=== PATIENT | female | born 1970 | race Caucasian/White ===

== ENCOUNTER → 2017-10-09 10:46 | Outpatient (CLI) | payer BC, SELFPAY ==
[2017-10-09 11:08] LABS: Basophils # 0.1 K/mm3 (0-0.2); Basophils % 0.5 % (0.1-2.0); Eosinophils # 0.3 K/mm3 (0.0-0.4); Eosinophils % 2.4 % (0.1-12.0); Hematocrit 40.5 % (37.0-47.0); Hemoglobin 13.3 g/dL (12.2-16.2); Lymphocytes # 2.2 K/mm3 (0.7-4.5); Lymphocytes % 20.5 K/mm3 (10-50); Mean Corpuscular Hemoglobin 29.5 pg (27.0-31.2); Mean Corpuscular Volume 89.6 fl (81-99); Monocytes # 0.5 K/mm3 (0.1-1.0); Monocytes % 4.4 % (1.7-9.3); Neutrophils # 7.7 K/mm3 (1.8-7.8); Neutrophils % 72.2 % (37.0-80.0); Platelet Count 415 K/mm3 (142-424); Red Blood Count 4.51 M/mm3 (4.20-5.40); Red Cell Distribution Width 13.5 % (11.5-17.5); White Blood Count 10.7 K/mm3 (4.8-10.8)
[2017-10-09 12:38] LABS: Alanine Aminotransferase 17 U/L (12-78); Albumin Level 3.4 gm/dL (3.4-5.0); Albumin/Globulin Ratio 1.1 (1.1-1.8); Alkaline Phosphatase 114 U/L (46-116); Anion Gap 12.8 mEq/L (5-15); Aspartate Amino Transferase 16 U/L (15-37); Bilirubin,Total 0.3 mg/dL (0.2-1.0); Blood Urea Nitrogen 10 mg/dL (7-18); C-Reactive Protein 0.7 mg/L (0.0-0.9); Calcium 8.6 mg/dL (8.5-10.1); Carbon Dioxide 27 mmol/L (21.0-32.0); Chloride 108 mmol/L (98-107); Creatinine,Serum 0.79 mg/dL (0.55-1.02); Estimated Glomerular Filt Rate 77 ml/min (>60); Ferritin 81 ng/mL (8-388); GFR (African American) 94 ML/MIN (>60); Globulin 3.1 gm/dl (1.3-3.2); Glucose 87 mg/dL (74-106); Potassium 3.8 mmoL/L (3.5-5.1); Sodium 144 mmol/L (136-145); Total Protein,Serum 6.5 gm/dL (6.4-8.2)
[2017-10-09 14:29] LABS: Erythrocyte Sedimentation Rate 15 mm/hr (0-20)
[2017-10-10 07:18] LABS: Iron 48 ug/dL (27-159); Iron Saturation 15 % (15-55); UIBC 278 ug/dL (131-425)
[2017-10-10 09:14] LABS: Vitamin B12 435 pg/mL (232-1245); Vitamin D 25 Hydroxy 18.4 ng/mL (30.0-100.0)
== END ==
PROVIDERS: PCP Emergency Medicine; Visit Provider Internal Medicine Gastroenterology
DX: K51.90 Ulcerative colitis, unspecified, without complications (principal)
CPT/HCPCS: 36415; 80053; 82607; 82652; 82728; 83550; 85025; 85651; 86140

== ENCOUNTER 2017-10-16 10:05 | Outpatient (CLI) | payer BC, SELFPAY ==
[2017-10-16 10:34] VITALS: BMI 24.0
[2017-10-16 11:10] VITALS: BP 132/77; PULSE 90; RESP 18; TEMP 36.2; O2SAT 99
[2017-10-16 11:25] VITALS: BP 105/71; PULSE 71; RESP 18
[2017-10-16 11:40] VITALS: BP 114/77; PULSE 87; RESP 18
--- NOTE | 2017-10-16 11:56 | PC.NURSE ---
TOTAL VOLUME INCLUDES ENTYVIO AND NS.
[2017-10-16 12:10] VITALS: BP 124/77; PULSE 71; RESP 18
== END 2017-10-16 12:15 | disposition home or self-care (01) ==
LOC: INF 11:28
PROVIDERS: Family Provider Nurse Practitioner Family; PCP Emergency Medicine; Visit Provider Internal Medicine Gastroenterology
DX: K51.511 Left sided colitis with rectal bleeding (principal)
CPT/HCPCS: 96413; J3380

== ENCOUNTER 2017-10-17 11:40 | Emergency (ER) | payer BC, SELFPAY ==
[2017-10-17 11:40] VITALS: BP 131/59; PULSE 94; RESP 18; O2SAT 98; BMI 24.0
--- NOTE | 2017-10-17 11:52 | XR_ITS ---
XR chest portable Ordering Physician: Helene Coelho MD Patient Age: 47 years: Female HISTORY: ITS.REASON: chest pain TECHNIQUE: AP portable upright chest COMPARISON :Previous PA chest 08/21/2017 FINDINGS The lungs are well expanded and clear with nothing definitely acute. Mild hyperexpansion most evident towards upper lung jones and apices. Heart orestes and mediastinal structures intact. geographic information system surveyor leads in place. . No pneumothorax no pleural effusion. Chest wall unchanged IMPRESSION: Stable chest nothing definitely acute . Lungs clear
--- NOTE | 2017-10-17 11:54 | HMH.EDGENADL ---
ED Disposition Clinical Impression: Atypical chest pain Disposition: Home, Self-Care Condition on Discharge: Good Instructions: DI for Atypical Chest Pain Additional Instructions: See Cy next week, and give Dr. Glover a call about your visit today; clinically you do not appear to be having an allergic reaction, but talk with him about any potential side effects before next administration of Entyvio. Referrals: Cy Alexandra APRN [Primary Care Provider] - - Critical Care Critical Care Time: No Attestation: On , the high probability of a clinically significant, sudden or life threatening deterioration of the following system(s) required my full and direct attention, intervention and personal management. The time I documented below is in addition to time spent performing reported procedures but includes the following listed in this critical care notation. Medical Decision Making Vital Signs: 10/17/17 11:40 Pulse Rate [Right Radial] 94 H Respiratory Rate 18 Blood Pressure [Right Arm] 131/59 Blood Pressure Mean [Right Arm] 83 Blood Pressure Source [Right Arm] Automatic Cuff Blood Pressure Position [Right Arm] Sitting 02 Sat by Pulse Oximetry 98 Oxygen Delivery Method Room Air - Lab Data Lab Results 10/17/17 11:55: WBC 8.6, RBC 4.77, Hgb 13.9, Hct 43.3, MCV 90.8, MCH 29.2, MCHC 32.1, RDW 13.5, Plt Count 380, MPV 7.1 L, Neut % (Auto) 65.4, Lymph % (Auto) 28.4, [place] % (Auto) 4.0, Eos % (Auto) 1.8, Baso % (Auto) 0.5, Neut # (Auto) 5.6, Lymph # (Auto) 2.4, [place] # (Auto) 0.3, Eos # (Auto) 0.2, Baso # (Auto) 0.0 10/17/17 11:55: Sodium 143, Potassium 3.6, Chloride 107, Carbon Dioxide 27, Anion Gap 12.6, BUN 8, Creatinine 0.75, Estimated Creat Clear 97, Estimated GFR 82, Est GFR ( Amer) 99, Glucose 70 L, Calcium 8.8, Total Bilirubin 0.4, AST 20, ALT 16, Alkaline Phosphatase 100, Troponin I < 0.02, Total Protein 7.1, Albumin 3.5, Globulin 3.6 H, Albumin/Globulin Ratio 1.0 L, TSH 0.72 Result diagrams: 10/17/17 11:55 10/17/17 11:55 Orders (Tests/Meds): ORDERS Category Date Time Status Chest XR -- portable [XR chest portable] Stat Exams 10/17/17 11:52 Taken ECG Request by /Doroteo Stat Y 10/17/17 11:52 Ordered - Radiology Data #1 Image(s): Chest Image Reviewed: Yes I reviewed the patient's radiology image Preliminary Findings: Normal/NAD, No Infiltrates Seen, Normal Lung Inflation Conner, Normal Heart Size - ECG Data Tracing #1 I reviewed this ECG and interpreted as documented below: EEG shows normal sinus rhythm rate of 90 axis and intervals. No ectopy. No ST changes. ECG normal with no acute: arrhythmias, ischemia, conduction abnormalities, chamber hypertrophy - Derian Inquiry Pt receiving controlled substance: No - Reevaluation(s) Time: 12:43 General Adult HPI - General Chief complaint: Chest Pain Stated complaint: CHEST PAIN Mode of Arrival: Family Vehicle Limitations: No Limitations Description of Symptoms (Recalled from ER Triage Doc. by RN): PT STATES SHE IS HAVING MIDSTERNAL CHEST PAIN THAT FEELS LIKE PRESSURE AT 7 ON THE PAIN SCALE. PT STATES PAIN STARTED LAST NIGHT BUT HAS CONTINUED TO GET WORSE. PT DOES RECEIVE ENTYVIO INFUSIONS AND HAD ONE 10/16/17. - History of Present Illness HPI narrative: Patient states that she has ulcerative colitis. Received her first dose of Entivia per order from Dr. Glover yesterday. The lowers after receiving this medication, she went home. She subsequently very gradually developed some anxiety, feeling that her heart was racing (although she took her pulse and she said it felt okay), as well as some chest pressure. Essure was associated with some anxiety but not associated with any nausea vomiting shortness of breath fever diaphoresis calf pain syncope or any other symptoms. She denies fever. No cough. Pain is not positional in nature. Arrival to the ED EKG was obtained and read at 11:35 AM and shows normal sinus rhythm w
--- NOTE | 2017-10-17 11:57 | ED_ITS ---
ED Disposition Clinical Impression: Atypical chest pain Disposition: Home, Self-Care Condition on Discharge: Good Instructions: DI for Atypical Chest Pain Additional Instructions: See Cy next week, and give Dr. Glover a call about your visit today; clinically you do not appear to be having an allergic reaction, but talk with him about any potential side effects before next administration of Entyvio. Referrals: Cy Alexandra APRN [Primary Care Provider] - - Critical Care Critical Care Time: No Attestation: On , the high probability of a clinically significant, sudden or life threatening deterioration of the following system(s) required my full and direct attention, intervention and personal management. The time I documented below is in addition to time spent performing reported procedures but includes the following listed in this critical care notation. Medical Decision Making Vital Signs: 10/17/17 11:40 Pulse Rate [Right Radial] 94 H Respiratory Rate 18 Blood Pressure [Right Arm] 131/59 Blood Pressure Mean [Right Arm] 83 Blood Pressure Source [Right Arm] Automatic Cuff Blood Pressure Position [Right Arm] Sitting 02 Sat by Pulse Oximetry 98 Oxygen Delivery Method Room Air - Lab Data Lab Results 10/17/17 11:55: WBC 8.6, RBC 4.77, Hgb 13.9, Hct 43.3, MCV 90.8, MCH 29.2, MCHC 32.1, RDW 13.5, Plt Count 380, MPV 7.1 L, Neut % (Auto) 65.4, Lymph % (Auto) 28.4, [place] % (Auto) 4.0, Eos % (Auto) 1.8, Baso % (Auto) 0.5, Neut # (Auto) 5.6 , Lymph # (Auto) 2.4, [place] # (Auto) 0.3, Eos # (Auto) 0.2, Baso # (Auto) 0.0 10/17/17 11:55: Sodium 143, Potassium 3.6, Chloride 107, Carbon Dioxide 27, Anion Gap 12.6, BUN 8, Creatinine 0.75, Estimated Creat Clear 97, Estimated GFR 82, Est GFR ( Amer) 99, Glucose 70 L, Calcium 8.8, Total Bilirubin 0.4, AST 20, ALT 16, Alkaline Phosphatase 100, Troponin I < 0.02, Total Protein 7.1, Albumin 3.5, Globulin 3.6 H, Albumin/Globulin Ratio 1.0 L, TSH 0.72 Result diagrams: 10/17/17 11:55 10/17/17 11:55 Orders (Tests/Meds): ORDERS Category Date Time Status Chest XR -- portable [XR chest portable] Stat Exams 10/17/17 11:52 Taken ECG Request by /Doroteo Stat Y 10/17/17 11:52 Ordered - Radiology Data #1 Image(s): Chest Image Reviewed: Yes I reviewed the patient's radiology image Preliminary Findings: Normal/NAD, No Infiltrates Seen, Normal Lung Inflation Conner , Normal Heart Size - ECG Data Tracing #1 I reviewed this ECG and interpreted as documented below: EEG shows normal sinus rhythm rate of 90 axis and intervals. No ectopy. No ST changes. ECG normal with no acute: arrhythmias, ischemia, conduction abnormalities, chamber hypertrophy - Derian Inquiry Pt receiving controlled substance: No - Reevaluation(s) Time: 12:43 General Adult HPI - General Chief complaint: Chest Pain Stated complaint: CHEST PAIN Mode of Arrival: Family Vehicle Limitations: No Limitations Description of Symptoms (Recalled from ER Triage Doc. by RN): PT STATES SHE IS HAVING MIDSTERNAL CHEST PAIN THAT FEELS LIKE PRESSURE AT 7 ON THE PAIN SCALE. PT STATES PAIN STARTED LAST NIGHT BUT HAS CONTINUED TO GET WORSE. PT DOES RECEIVE ENTYVIO INFUSIONS AND HAD ONE 10/16/17. - History of Present Illness HPI narrative: Patient states that she has ulcerative colitis. Received her first dose of Entivia per order from Dr. Glover yesterday. The lowers after recei
[2017-10-17 12:08] LABS: Basophils % 0.5 % (0.1-2.0); Eosinophils # 0.2 K/mm3 (0.0-0.4); Eosinophils % 1.8 % (0.1-12.0); Hematocrit 43.3 % (37.0-47.0); Hemoglobin 13.9 g/dL (12.2-16.2); Lymphocytes # 2.4 K/mm3 (0.7-4.5); Lymphocytes % 28.4 K/mm3 (10-50); Mean Corpuscular HGB Conc 32.1 g/dL (31.8-35.4); Mean Corpuscular Hemoglobin 29.2 pg (27.0-31.2); Mean Corpuscular Volume 90.8 fl (81-99); Mean Platelet Volume 7.1 fl (7.4-10.4); Monocytes # 0.3 K/mm3 (0.1-1.0); Neutrophils # 5.6 K/mm3 (1.8-7.8); Neutrophils % 65.4 % (37.0-80.0); Platelet Count 380 K/mm3 (142-424); Red Blood Count 4.77 M/mm3 (4.20-5.40); Red Cell Distribution Width 13.5 % (11.5-17.5); White Blood Count 8.6 K/mm3 (4.8-10.8)
[2017-10-17 12:26] LABS: Troponin I < 0.02 ng/ml (0.00-0.06)
[2017-10-17 12:31] LABS: Alanine Aminotransferase 16 U/L (12-78); Albumin Level 3.5 gm/dL (3.4-5.0); Alkaline Phosphatase 100 U/L (46-116); Anion Gap 12.6 mEq/L (5-15); Aspartate Amino Transferase 20 U/L (15-37); Bilirubin,Total 0.4 mg/dL (0.2-1.0); Blood Urea Nitrogen 8 mg/dL (7-18); Calcium 8.8 mg/dL (8.5-10.1); Carbon Dioxide 27 mmol/L (21.0-32.0); Chloride 107 mmol/L (98-107); Creatinine Clearance Estimated 97 mL/min (0-300); Creatinine,Serum 0.75 mg/dL (0.55-1.02); Estimated Glomerular Filt Rate 82 ml/min (>60); GFR (African American) 99 ML/MIN (>60); Globulin 3.6 gm/dl (1.3-3.2); Glucose 70 mg/dL (74-106); Potassium 3.6 mmoL/L (3.5-5.1); Sodium 143 mmol/L (136-145); Thyroid Stimulating Hormone 0.72 uIU/ml (0.358-3.740); Total Protein,Serum 7.1 gm/dL (6.4-8.2)
== END 2017-10-17 13:30 | disposition home or self-care (01) ==
PROVIDERS: Emergency Provider Emergency Medicine; Family Provider Nurse Practitioner Family; PCP Nurse Practitioner Family
DX: R07.89 Other chest pain (principal); K51.90 Ulcerative colitis, unspecified, without complications; F17.210 Nicotine dependence, cigarettes, uncomplicated
CPT/HCPCS: 71045; 80053; 84443; 84484; 85025; 93005; 93041; 99284

== ENCOUNTER 2017-11-03 09:30 | Outpatient (CLI) | payer BC, SELFPAY ==
[2017-11-03 09:19] VITALS: BMI 24.0
[2017-11-03 09:50] LABS: Basophils # 0.1 K/mm3 (0-0.2); Basophils % 0.6 % (0.1-2.0); Eosinophils # 0.3 K/mm3 (0.0-0.4); Eosinophils % 3.8 % (0.1-12.0); Hematocrit 43.1 % (37.0-47.0); Lymphocytes # 2.5 K/mm3 (0.7-4.5); Mean Corpuscular HGB Conc 32.5 g/dL (31.8-35.4); Mean Corpuscular Hemoglobin 29.6 pg (27.0-31.2); Mean Corpuscular Volume 91.1 fl (81-99); Monocytes # 0.4 K/mm3 (0.1-1.0); Monocytes % 4.7 % (1.7-9.3); Neutrophils # 5.2 K/mm3 (1.8-7.8); Neutrophils % 60.9 % (37.0-80.0); Platelet Count 368 K/mm3 (142-424); Red Blood Count 4.73 M/mm3 (4.20-5.40); Red Cell Distribution Width 13.5 % (11.5-17.5); White Blood Count 8.5 K/mm3 (4.8-10.8)
[2017-11-03 09:55] VITALS: BP 105/74; PULSE 75; RESP 20; TEMP 36.4
[2017-11-03 10:20] VITALS: BP 107/74; PULSE 68; RESP 20; TEMP 36.4; O2SAT 98
[2017-11-03 10:22] LABS: Alanine Aminotransferase 18 U/L (12-78); Albumin Level 3.5 gm/dL (3.4-5.0); Aspartate Amino Transferase 11 U/L (15-37); Blood Urea Nitrogen 10 mg/dL (7-18); C-Reactive Protein 1.3 mg/L (0.0-0.9); Calcium 8.6 mg/dL (8.5-10.1); Carbon Dioxide 26 mmol/L (21.0-32.0); Chloride 109 mmol/L (98-107); Creatinine Clearance Estimated 81 mL/min (0-300); Estimated Glomerular Filt Rate 67 ml/min (>60); GFR (African American) 81 ML/MIN (>60); Glucose 88 mg/dL (74-106); Sodium 145 mmol/L (136-145)
[2017-11-03 10:33] LABS: Erythrocyte Sedimentation Rate 12 mm/hr (0-20)
[2017-11-03 10:40] VITALS: BP 110/74; PULSE 68; RESP 20; TEMP 36.4; O2SAT 95
[2017-11-03 10:59] LABS: Alkaline Phosphatase 103 U/L (46-116); Bilirubin,Total 0.4 mg/dL (0.2-1.0); Ferritin 79 ng/mL (8-388); Globulin 3.5 gm/dl (1.3-3.2)
[2017-11-04 08:27] LABS: Iron 93 ug/dL (27-159); Iron Saturation 28 % (15-55); UIBC 237 ug/dL (131-425)
[2017-11-05 12:33] LABS: Vitamin B12 469 pg/mL (232-1245); Vitamin D 25 Hydroxy 18.4 ng/mL (30.0-100.0)
== END 2017-11-03 11:10 | disposition home or self-care (01) ==
LOC: INF 13:05
PROVIDERS: Family Provider Nurse Practitioner Family; PCP Nurse Practitioner Family; Visit Provider Internal Medicine Gastroenterology
DX: K51.90 Ulcerative colitis, unspecified, without complications (principal)
CPT/HCPCS: 80053; 82607; 82652; 82728; 83550; 85025; 85651; 86140; 96365; J3380

== ENCOUNTER → 2017-11-13 07:30 | Outpatient (CLI) | payer BC, SELFPAY ==
--- NOTE | 2017-11-13 07:32 | CT_ITS ---
CT heart w calcium score INDICATION: Tobacco use, smoker ORDERING PHYSICIAN: Laureano Balderas MD PATIENT AGE: 47 years COMPARISON: None TECHNIQUE: Axial images are obtained without contrast. Sagittal and coronal reformatted images are reviewed as well. All CT scans at the facility use one or more dose reduction, viz: automated exposure control; ma/kV adjustment per patient size (including targeted exams where dose is matched to indication; i.e. head); or iterative reconstruction technique. FINDINGS: Coronary artery calcium score is 0 indicating a very low cardiovascular disease risk. Incidental note made of centrilobular emphysematous changes. IMPRESSION: 1. No identifiable atherosclerotic plaque indicating very low cardiovascular disease risk 2. Centrilobular emphysema
--- NOTE | 2017-11-13 07:33 | NM_ITS ---
History and Indications: Chest pressure Procedure: Patient exercised on Leonard protocol 7 minutes, resting heart rate was 76 bpm, resting blood pressure 140/69, with exercise maximum heart rate achieved was 1 63 bpm which is equal to 95% of the maximum predicted heart rate and a blood pressure was 156/85. Test was started due to shortness of breath, patient denied any complained of chest pain. Patient has good exercise capacity achieved 10.1mets of workload on treadmill, the blood pressure response to exercise was adequate. Electrocardiogram: Resting electrocardiogram showed sinus rhythm, rightward axis, with exercise occasional premature ventricular complex seen, there is less than 1.[address] segment depression noted from the baseline EKG. The EKG portion of the exercise Myoview is negative for ischemia. Cardiac stress and resting SPECT images: Cardiac stress and resting SPECT images were obtained using technetium 99 Myoview 31.6 mCi at stress and the 10.9 mCi at rest, gated SPECT further analysis of segmental wall motion and calculation of the ejection fraction also done. Cardiac stress and rest images show uniform myocardial activity without any segmental perfusion abnormality, computer derived ejection fraction is 64% with no obvious regional wall motion abnormality, right ventricle is normal size and contractility. Conclusion: 1. The EKG portion of the exercise Myoview is negative for ischemia, patient has good exercise capacity achieved 10.1mets of workload on treadmill, the blood pressure response to exercise was adequate, there was no exercise-induced chest discomfort. 2. No obvious scintigraphic evidence of reversible ischemia seen, computer derived ejection fraction is 64% with no obvious regional wall motion abnormality, right ventricle is normal size and contractility.
--- NOTE | 2017-11-13 07:41 | CA_ITS ---
PROCEDURE: 2-D M-mode and color Doppler study INDICATIONS FOR THE TEST: Chest pain X COPDX Heart Murmur Tobacco SmokingX Palpitations Fatigue Syncope Edema Hypertension Diabetes Mellitus Rheumatic Fever SOB [place] Obesity Hyperlipidemia Family History HD Additional History PATIENT INFORMATION HEIGHT: 66 WEIGHT:147 GENDER: Female B/P:140/69 2-D/M-MODE INTERPRETATION: 2-D MEASUREMENTS OBSERVED VALUES IN CMS Right Ventricular Dimension (RVDd) 1.7 Interventricular Septum (Thickness)(IVsd) .8 Left Ventricular Internal Dimensions(LVIDd) 4.3 Left Ventricular Posterior Wall (Thickness)(LVPWd) .8 Aortic Root 2.6 Aortic Cusp Separation 1.7 Left Atrial Dimensions (LAD) 3.0 2D 1. Left atrium is normal size, left ventricle is normal size, there is no concentric left ventricular hypertrophy, visually estimated ejection fraction 55% with no obvious regional wall motion abnormality. 2. The right atrium and right ventricle are normal size and contractility. 3. The aortic valve is minimally thickened and fibrosed. 4. The mitral and tricuspid valve are structurally normal. 5. The pulmonic valve is poorly visualized. 6. No significant pericardial effusion noted DOPPLER INTERROGATION: Doppler interrogation of the aortic, mitral and tricuspid valvular presence of mild mitral and tricuspid regurgitation, tricuspid and jet velocity insufficient for calculation of the right ventricular systolic pressure, grade 1 diastolic dysfunction seen without tissue Doppler evidence of raised left atrial pressure. CONCLUSION: 1. Normal left ventricular size, preserved left ventricular systolic function, visually estimated ejection fraction 55% with no obvious regional wall motion abnormality, grade 1 diastolic dysfunction seen without tissue Doppler evidence of raised left atrial pressure. 2. Mild mitral and tricuspid regurgitation 3. No significant pericardial effusion noted.
--- NOTE | 2017-11-13 12:02 | HMH.ITSHM ---
estrdiol, ventolin, fluticasone, vit d, omeprazole, asa
== END ==
PROVIDERS: Family Provider Nurse Practitioner Family; PCP Nurse Practitioner Family; Visit Provider Internal Medicine
DX: R07.89 Other chest pain (principal); R06.00 Dyspnea, unspecified; F17.200 Nicotine dependence, unspecified, uncomplicated
CPT/HCPCS: 75571; 78452; 93017; 93306; A9502

== ENCOUNTER 2017-12-03 09:22 | Outpatient (CLI) | payer BC, SELFPAY ==
[2017-12-03 09:33] VITALS: BMI 23.3
[2017-12-03 09:44] LABS: Basophils # 0.1 K/mm3 (0-0.2); Basophils % 0.5 % (0.1-2.0); Eosinophils # 0.3 K/mm3 (0.0-0.4); Eosinophils % 2.9 % (0.1-12.0); Hematocrit 43.6 % (37.0-47.0); Hemoglobin 13.9 g/dL (12.2-16.2); Lymphocytes # 2.2 K/mm3 (0.7-4.5); Mean Corpuscular HGB Conc 31.9 g/dL (31.8-35.4); Mean Corpuscular Hemoglobin 30.6 pg (27.0-31.2); Mean Corpuscular Volume 96.1 fl (81-99); Mean Platelet Volume 7.3 fl (7.4-10.4); Monocytes # 0.4 K/mm3 (0.1-1.0); Monocytes % 4.6 % (1.7-9.3); Neutrophils # 6.1 K/mm3 (1.8-7.8); Neutrophils % 67.9 % (37.0-80.0); Platelet Count 329 K/mm3 (142-424); Red Blood Count 4.53 M/mm3 (4.20-5.40); Red Cell Distribution Width 13.1 % (11.5-17.5); White Blood Count 8.9 K/mm3 (4.8-10.8)
[2017-12-03 09:52] LABS: Alanine Aminotransferase 17 U/L (12-78); Albumin Level 3.3 gm/dL (3.4-5.0); Alkaline Phosphatase 94 U/L (46-116); Anion Gap 11.5 mEq/L (5-15); Aspartate Amino Transferase 9 U/L (15-37); Bilirubin,Total 0.2 mg/dL (0.2-1.0); Blood Urea Nitrogen 11 mg/dL (7-18); C-Reactive Protein 0.3 mg/L (0.0-0.9); Calcium 8.5 mg/dL (8.5-10.1); Carbon Dioxide 27 mmol/L (21.0-32.0); Chloride 108 mmol/L (98-107); Creatinine Clearance Estimated 78 mL/min (0-300); Creatinine,Serum 0.91 mg/dL (0.55-1.02); Estimated Glomerular Filt Rate 66 ml/min (>60); GFR (African American) 80 ML/MIN (>60); Globulin 3.4 gm/dl (1.3-3.2); Glucose 85 mg/dL (74-106); Potassium 3.5 mmoL/L (3.5-5.1); Sodium 143 mmol/L (136-145); Total Protein,Serum 6.7 gm/dL (6.4-8.2)
[2017-12-03 10:00] VITALS: BP 108/69; PULSE 71; RESP 18; TEMP 36.6; O2SAT 98
[2017-12-03 10:15] VITALS: BP 119/71; PULSE 78; RESP 20; O2SAT 98
[2017-12-03 10:30] VITALS: BP 122/74; PULSE 76; RESP 20; O2SAT 98
[2017-12-03 10:45] VITALS: BP 125/76; PULSE 74; RESP 20; O2SAT 97
[2017-12-03 11:15] VITALS: BP 115/75; PULSE 76; RESP 20; TEMP 36.4; O2SAT 97
== END 2017-12-03 11:15 | disposition home or self-care (01) ==
LOC: INF 12-10 07:45
PROVIDERS: Family Provider Nurse Practitioner Family; PCP Nurse Practitioner Family; Visit Provider Internal Medicine Gastroenterology
DX: K51.511 Left sided colitis with rectal bleeding (principal); R19.7 Diarrhea, unspecified; K51.90 Ulcerative colitis, unspecified, without complications
CPT/HCPCS: 80053; 85025; 86140; 96413; J3380

== ENCOUNTER → 2017-12-04 11:31 | Outpatient (CLI) | payer BC, SELFPAY | PROVIDERS: PCP Emergency Medicine; Visit Provider Internal Medicine Cardiovascular Disease | DX: G47.33 Obstructive sleep apnea (adult) (pediatric) (principal); R06.83 Snoring; R06.00 Dyspnea, unspecified; R53.83 Other fatigue; F17.200 Nicotine dependence, unspecified, uncomplicated | CPT/HCPCS: 95806 ==

== ENCOUNTER → 2018-01-11 10:41 | Outpatient (POV) | payer BC, SELFPAY ==
[2018-01-11 12:02] LABS: Basophils % 0.3 % (0.1-2.0); Eosinophils # 0.1 K/mm3 (0.0-0.4); Eosinophils % 1.4 % (0.1-12.0); Hematocrit 43.1 % (37.0-47.0); Lymphocytes # 1.6 K/mm3 (0.7-4.5); Lymphocytes % 16.2 K/mm3 (10-50); Mean Corpuscular HGB Conc 32.4 g/dL (31.8-35.4); Mean Corpuscular Hemoglobin 30.5 pg (27.0-31.2); Mean Platelet Volume 6.9 fl (7.4-10.4); Monocytes # 0.4 K/mm3 (0.1-1.0); Monocytes % 3.8 % (1.7-9.3); Neutrophils # 7.7 K/mm3 (1.8-7.8); Neutrophils % 78.3 % (37.0-80.0); Platelet Count 336 K/mm3 (142-424); Red Blood Count 4.58 M/mm3 (4.20-5.40); White Blood Count 9.8 K/mm3 (4.8-10.8)
[2018-01-11 14:07] LABS: Alanine Aminotransferase 16 U/L (12-78); Albumin Level 3.4 gm/dL (3.4-5.0); Albumin/Globulin Ratio 1.1 (1.1-1.8); Alkaline Phosphatase 98 U/L (46-116); Anion Gap 13.7 mEq/L (5-15); Aspartate Amino Transferase 14 U/L (15-37); Bilirubin,Total 0.5 mg/dL (0.2-1.0); Blood Urea Nitrogen 9 mg/dL (7-18); C-Reactive Protein 0.2 mg/L (0.0-0.9); Calcium 8.8 mg/dL (8.5-10.1); Carbon Dioxide 26 mmol/L (21.0-32.0); Chloride 107 mmol/L (98-107); Creatinine,Serum 0.79 mg/dL (0.55-1.02); Estimated Glomerular Filt Rate 77 ml/min (>60); Ferritin 57 ng/mL (8-388); GFR (African American) 94 ML/MIN (>60); Globulin 3.1 gm/dl (1.3-3.2); Glucose 75 mg/dL (74-106); Potassium 3.7 mmoL/L (3.5-5.1); Sodium 143 mmol/L (136-145); Total Protein,Serum 6.5 gm/dL (6.4-8.2)
[2018-01-11 14:13] LABS: Erythrocyte Sedimentation Rate 8 mm/hr (0-20)
[2018-01-12 08:29] LABS: Iron 134 ug/dL (27-159); UIBC 185 ug/dL (131-425)
[2018-01-13 06:43] LABS: Iron Saturation 42 % (15-55); Vitamin B12 389 pg/mL (232-1245)
== END ==
PROVIDERS: Family Provider Nurse Practitioner Family; PCP Emergency Medicine; Visit Provider Nurse Practitioner Acute Care
DX: K51.90 Ulcerative colitis, unspecified, without complications (principal)
CPT/HCPCS: 36415; 80053; 82607; 82728; 83550; 85025; 85651; 86140

== ENCOUNTER 2018-01-28 10:00 | Outpatient (CLI) | payer BC, SELFPAY ==
[2018-01-28 10:45] VITALS: BP 98/63; PULSE 74; RESP 18; TEMP 36.8; O2SAT 96
[2018-01-28 11:00] VITALS: BP 101/60; PULSE 72; RESP 16
[2018-01-28 11:15] VITALS: BP 100/60; PULSE 74; RESP 18
[2018-01-28 11:30] VITALS: BP 99/63; PULSE 74; RESP 18
== END 2018-01-28 11:30 | disposition home or self-care (01) ==
LOC: INF 10:00
PROVIDERS: Family Provider Nurse Practitioner Family; PCP Emergency Medicine; Visit Provider Internal Medicine Gastroenterology
DX: K51.511 Left sided colitis with rectal bleeding (principal)
CPT/HCPCS: 96413; J3380

== ENCOUNTER → 2018-02-15 11:57 | Outpatient (REF) | payer BC, SELFPAY ==
[2018-02-15 13:43] LABS: Basophils % 0.4 % (0.1-2.0); Eosinophils # 0.3 K/mm3 (0.0-0.4); Eosinophils % 3.6 % (0.1-12.0); Hematocrit 38.9 % (37.0-47.0); Hemoglobin 12.9 g/dL (12.2-16.2); Lymphocytes # 2.1 K/mm3 (0.7-4.5); Lymphocytes % 24.5 K/mm3 (10-50); Mean Corpuscular Hemoglobin 29.9 pg (27.0-31.2); Mean Corpuscular Volume 90.6 fl (81-99); Mean Platelet Volume 7.5 fl (7.4-10.4); Monocytes # 0.3 K/mm3 (0.1-1.0); Monocytes % 3.8 % (1.7-9.3); Neutrophils # 5.7 K/mm3 (1.8-7.8); Neutrophils % 67.7 % (37.0-80.0); Platelet Count 344 K/mm3 (142-424); Red Blood Count 4.29 M/mm3 (4.20-5.40); Red Cell Distribution Width 12.8 % (11.5-17.5); White Blood Count 8.4 K/mm3 (4.8-10.8)
[2018-02-15 13:58] LABS: Hemoglobin A1C 5.3 % (0.0-7.0)
[2018-02-15 14:44] LABS: Alanine Aminotransferase 29 U/L (12-78); Albumin Level 3.4 gm/dL (3.4-5.0); Albumin/Globulin Ratio 1.1 (1.1-1.8); Alkaline Phosphatase 113 U/L (46-116); Anion Gap 14.2 mEq/L (5-15); Aspartate Amino Transferase 29 U/L (15-37); Bilirubin,Total 0.3 mg/dL (0.2-1.0); Blood Urea Nitrogen 9 mg/dL (7-18); Calcium 8.6 mg/dL (8.5-10.1); Carbon Dioxide 27 mmol/L (21.0-32.0); Chloride 108 mmol/L (98-107); Chol/HDL Ratio 5.8 (1-3.5); Cholesterol 187 mg/dL (140-200); Creatinine,Serum 0.63 mg/dL (0.55-1.02); Estimated Glomerular Filt Rate 100 ml/min (>60); Free T4 (Free Thyroxine) 1.04 ng/dl (0.76-1.46); GFR (African American) 121 ML/MIN (>60); Globulin 3.1 gm/dl (1.3-3.2); Glucose 76 mg/dL (74-106); HDL Cholesterol 32 mg/dL (29-89); LDL Cholesterol 105 mg/dL (0-130); Potassium 4.2 mmoL/L (3.5-5.1); Sodium 145 mmol/L (136-145); Thyroid Stimulating Hormone 0.72 uIU/ml (0.358-3.740); Total Protein,Serum 6.5 gm/dL (6.4-8.2); Triglycerides 251 mg/dL (30-200); VLDL Cholesterol 50 mg/dL (0-40)
[2018-02-15 14:45] LABS: Erythrocyte Sedimentation Rate 14 mm/hr (0-20)
[2018-02-16 14:30] LABS: Vitamin D 25 Hydroxy 22.7 ng/mL (30.0-100.0)
== END ==
LOC: LAB 11:57
PROVIDERS: Visit Provider Nurse Practitioner Family
DX: R53.83 Other fatigue (principal); G44.52 New daily persistent headache (NDPH)
CPT/HCPCS: 80053; 80061; 82652; 83036; 84439; 84443; 85025; 85651

== ENCOUNTER → 2018-02-25 08:38 | Outpatient (CLI) | payer BC, SELFPAY ==
--- NOTE | 2018-02-25 08:39 | MR_ITS ---
MR head/brain wo con HISTORY: Weren't headache ever, new onset headache ITS.REASON: headache ORDERING PHYSICIAN: Roseline Dodge PATIENT AGE: 48 years Comparison: None TECHNIQUE: Standard multiplanar multiecho sequences are performed without contrast. FINDINGS: No midline shift, mass effect, intracranial hemorrhage, or hydrocephalus. No evidence of acute infarction. The cerebellopontine angles, cerebellum, and brainstem are unremarkable. No large aneurysms. Small aneurysms may not be detected with this technique and better evaluated with MRA clinically warranted. There is normal de-white matter differentiation with no significant white matter abnormalities apparent. The mechanical gyri and temporal heart is are unremarkable. The pituitary, optic chiasm, corpus callosum are unremarkable. No cerebellar ectopia. No sinus air-fluid level. Small retention cysts are present in the sphenoid sinus. IMPRESSION: Negative MRI of the brain, no acute intracranial findings
== END ==
PROVIDERS: Family Provider Nurse Practitioner Family; PCP Emergency Medicine; Visit Provider Nurse Practitioner Family
DX: R51 Headache (principal)
CPT/HCPCS: 70551

== ENCOUNTER 2018-03-25 10:15 | Outpatient (CLI) | payer BC, SELFPAY ==
[2018-03-25 11:00] VITALS: BP 98/52; PULSE 75; RESP 18
[2018-03-25 11:15] VITALS: BP 125/74; PULSE 70; RESP 16
[2018-03-25 11:30] VITALS: BP 115/70; PULSE 68; RESP 16
== END 2018-03-25 11:45 | disposition home or self-care (01) ==
LOC: INF 10:23
PROVIDERS: Family Provider Nurse Practitioner Family; PCP Emergency Medicine; Visit Provider Internal Medicine Gastroenterology
DX: K51.511 Left sided colitis with rectal bleeding (principal)
CPT/HCPCS: 96413; J3380

== ENCOUNTER → 2018-03-29 10:12 | Outpatient (POV) | payer BC, SELFPAY ==
[2018-03-29 11:59] LABS: Basophils % 0.3 % (0.1-2.0); Eosinophils # 0.1 K/mm3 (0.0-0.4); Eosinophils % 1.5 % (0.1-12.0); Hematocrit 42.9 % (37.0-47.0); Hemoglobin 13.6 g/dL (12.2-16.2); Lymphocytes # 2.3 K/mm3 (0.7-4.5); Lymphocytes % 27.1 K/mm3 (10-50); Mean Corpuscular HGB Conc 31.7 g/dL (31.8-35.4); Mean Corpuscular Hemoglobin 29.2 pg (27.0-31.2); Mean Platelet Volume 7.4 fl (7.4-10.4); Monocytes # 0.4 K/mm3 (0.1-1.0); Monocytes % 4.8 % (1.7-9.3); Neutrophils # 5.6 K/mm3 (1.8-7.8); Neutrophils % 66.3 % (37.0-80.0); Platelet Count 349 K/mm3 (142-424); Red Blood Count 4.66 M/mm3 (4.20-5.40); White Blood Count 8.4 K/mm3 (4.8-10.8)
[2018-03-29 12:37] LABS: Alanine Aminotransferase 18 U/L (12-78); Albumin Level 3.4 gm/dL (3.4-5.0); Albumin/Globulin Ratio 1.1 (1.1-1.8); Alkaline Phosphatase 94 U/L (46-116); Anion Gap 11.9 mEq/L (5-15); Aspartate Amino Transferase 16 U/L (15-37); Bilirubin,Total 0.5 mg/dL (0.2-1.0); Blood Urea Nitrogen 12 mg/dL (7-18); C-Reactive Protein 0.2 mg/L (0.0-0.9); Calcium 8.7 mg/dL (8.5-10.1); Carbon Dioxide 27 mmol/L (21.0-32.0); Chloride 108 mmol/L (98-107); Creatinine,Serum 0.73 mg/dL (0.55-1.02); Estimated Glomerular Filt Rate 84 ml/min (>60); Ferritin 71 ng/mL (8-388); GFR (African American) 102 ML/MIN (>60); Globulin 3.1 gm/dl (1.3-3.2); Glucose 83 mg/dL (74-106); Potassium 3.9 mmoL/L (3.5-5.1); Sodium 143 mmol/L (136-145); Total Protein,Serum 6.5 gm/dL (6.4-8.2)
[2018-03-29 12:54] LABS: Erythrocyte Sedimentation Rate 10 mm/hr (0-20)
[2018-03-30 08:38] LABS: Iron 102 ug/dL (27-159); Iron Saturation 32 % (15-55); UIBC 214 ug/dL (131-425)
[2018-03-30 09:02] LABS: Vitamin B12 415 pg/mL (232-1245); Vitamin D 25 Hydroxy 44.3 ng/mL (30.0-100.0)
== END ==
PROVIDERS: Family Provider Nurse Practitioner Family; PCP Emergency Medicine; Visit Provider Nurse Practitioner Acute Care
DX: K51.90 Ulcerative colitis, unspecified, without complications (principal)
CPT/HCPCS: 36415; 80053; 82607; 82652; 82728; 83540; 83550; 85025; 85651; 86140

== ENCOUNTER 2018-05-24 10:08 | Outpatient (CLI) | payer BC, SELFPAY ==
[2018-05-24 10:45] VITALS: BP 132/70; PULSE 71; RESP 18; TEMP 36.5; O2SAT 100
[2018-05-24 11:00] VITALS: BP 129/72; PULSE 74; RESP 18; TEMP 36.6; O2SAT 99
[2018-05-24 11:15] VITALS: BP 125/74; PULSE 68; RESP 16
[2018-05-24 11:30] VITALS: BP 130/76; PULSE 72; RESP 18; TEMP 36.6; O2SAT 98
[2018-05-24 11:50] VITALS: BP 129/75; PULSE 74; RESP 18; TEMP 36.6; O2SAT 99
== END 2018-05-24 11:50 | disposition home or self-care (01) ==
LOC: INF 10:08
PROVIDERS: Family Provider Nurse Practitioner Family; PCP Emergency Medicine; Visit Provider Internal Medicine Gastroenterology
DX: K51.511 Left sided colitis with rectal bleeding (principal)
CPT/HCPCS: 96365; J3380

== ENCOUNTER 2018-07-30 11:15 | Outpatient (CLI) | payer BC, SELFPAY ==
[2018-07-30 11:34] VITALS: BP 134/70; PULSE 74; RESP 18; TEMP 36.4; O2SAT 98
[2018-07-30 11:50] VITALS: BP 119/71; PULSE 69; RESP 18; TEMP 36.6; O2SAT 97
[2018-07-30 12:05] VITALS: BP 120/60; PULSE 72; RESP 16; TEMP 36.7; O2SAT 98
[2018-07-30 12:15] VITALS: BP 123/70; PULSE 61; RESP 18; TEMP 36.6; O2SAT 98
[2018-07-30 12:30] VITALS: BP 121/76; PULSE 68; RESP 18; TEMP 36.6; O2SAT 97
== END 2018-07-30 12:30 | disposition home or self-care (01) ==
LOC: INF 11:15
PROVIDERS: Visit Provider Internal Medicine Gastroenterology
DX: K51.511 Left sided colitis with rectal bleeding (principal)
CPT/HCPCS: 96365; 96413; J3380

== ENCOUNTER → 2018-08-03 08:58 | Outpatient (CLI) | payer BC, SELFPAY ==
--- NOTE | 2018-08-03 08:59 | MM_ITS ---
MM Dig screening mamm BI w/CAD ORDERING PHYSICIAN : Brian Edge MD PATIENT AGE: 48 years GENDER: Female COMPARISON: June 2017 and January 2016. INDICATION: ITS.REASON: screening TECHNIQUE: Standard CC and MLO images were obtained. R2 CAD reviewed. FINDINGS: HISTORY of fibrocystic breast disease with multiple round masses bilaterally likely reflecting such . RIGHT BREAST:Multiple large round density. These have progressed since previous studies and all the most likely reflects cysts but recommend ultrasound to further verify 9 cystic nature. Beginning in the retroareolar region there are 2 round likely cyst structures here. One measuring up to 3.5 cm maximum diameter( labeled A ) & the other roughly 2.4 cm (labeled B) More laterally there are additional cyst. Largest measuring up to 3 cm diameter at deep upper-outer quadrant right breast. It is labeled C The larger cysts have on right breast have progressed since previous study. Other smaller cysts laterally have regressed slightly Previous January 2016 ultrasound right breast showed somewhat indeterminate area 9:00. This would benefit from follow-up ultrasound evaluation along with the other cyst . . LEFT BREAST: Round densities compatible with cystsat the left breast are shown less change since 2017. Less progression. The largest measuring 2.5 cm at the lateral left breast labeled X is shown slight progression.Other Smaller cyst at the lateral breast with little if any change. Overall believe cystic areas the left breast have improved since 2015 IMPRESSION: 1. Multiple rounded densities reflect presumed cysts bilaterally (as have been demonstrated on prior ultrasound and mammograms] Right breast. Progression of presumed cysts at right breast Left breast. Presumed Cysts less numerous and appear more stable. 2. would recommend bilateral breast ultrasound to further confirm benign cystic character of prominent, breast masses bilaterally. BI-RADS Category: 0 Need Additional Imaging Evaluation RECOMMENDED FOLLOW-UP: IMM - IMMEDIATE FOLLOW-UP RECOMMENDED Bilateral breast ultrasound (A letter has been sent to the patient regarding results of the study.)
== END ==
PROVIDERS: PCP Nurse Practitioner Family; Visit Provider Obstetrics & Gynecology
DX: Z12.31 Encounter for screening mammogram for malignant neoplasm of breast (principal)
CPT/HCPCS: 77067

== ENCOUNTER → 2018-08-12 10:41 | Outpatient (CLI) | payer BC, SELFPAY ==
--- NOTE | 2018-08-12 10:42 | US_ITS ---
US breast RT complete INDICATION: Abnormal mammogram ORDERING PHYSICIAN: Brian Edge MD PATIENT AGE: 48 years COMPARISON: 08/03/2018, 02/11/2016 TECHNIQUE: Right breast ultrasound complete with axilla FINDINGS: Numerous cysts are present including 4 mm cyst at 12:00 4.4 cm complex cyst at 12:00 on the nipple previously 2 cm. The cyst does contain some internal debris which is developed in the interval 15 mm complex cyst with mildly thickened septations at 9:00 previously at 12 mm 2.7 cm complex cyst at 10:00 containing some internal debris. This previously was 3.2 cm IMPRESSION: Multiple right breast cysts some of which have increased in size in the complex appearance containing some internal debris and some with septations BI-RADS Category: 2 Benign Finding(s) RECOMMENDED FOLLOW-UP: 6M - 6 MONTH FOLLOW-UP Any of these cysts could be aspirated with sonographic guidance if clinically desired for patient comfort/piece of mind (A letter has been sent to the patient regarding results of the study.)
--- NOTE | 2018-08-12 10:42 | US_ITS ---
US breast LT complete INDICATION: Evaluate left breast cysts/masses ORDERING PHYSICIAN: Brian Edge MD PATIENT AGE: 48 years COMPARISON: 02/11/2016, 08/03/2018 TECHNIQUE: Left breast ultrasound complete with axillae FINDINGS: Multiple breast cysts are noted. 9 mm cyst at 12:00 1 cm cyst at 12:00 near the nipple 9 mm cyst at 2:00 outer 2.8 x 1.7 cm cyst 2:00 mid Nodes in the axilla IMPRESSION: Benign findings. No evidence of malignancy BI-RADS Category: 2 Benign Finding(s) RECOMMENDED FOLLOW-UP: 1YR - 1 YEAR FOLLOW-UP (A letter has been sent to the patient regarding results of the study.)
== END ==
PROVIDERS: PCP Nurse Practitioner Family; Visit Provider Obstetrics & Gynecology
DX: R92.8 Other abnormal and inconclusive findings on diagnostic imaging of breast (principal)
CPT/HCPCS: 76641

== ENCOUNTER 2018-09-24 11:07 | Outpatient (CLI) | payer BC, SELFPAY ==
[2018-09-24 11:36] VITALS: BP 117/72; PULSE 97; RESP 18; TEMP 36.7; O2SAT 100
[2018-09-24 12:06] VITALS: BP 110/71; PULSE 94; RESP 18; O2SAT 99
[2018-09-24 12:25] VITALS: BP 97/65; PULSE 75; RESP 18; O2SAT 99
== END 2018-09-24 12:30 | disposition home or self-care (01) ==
LOC: INF 11:07
PROVIDERS: Visit Provider Nurse Practitioner Acute Care
DX: K51.90 Ulcerative colitis, unspecified, without complications (principal)
CPT/HCPCS: 96413; J3380

== ENCOUNTER → 2018-11-23 09:44 | Outpatient (CLI) | payer BC, SELFPAY ==
--- NOTE | 2018-11-23 09:47 | US_ITS ---
US breast cyst asp, US breast RT complete HISTORY: Complex right breast cyst with increasing tenderness. Patient desires aspiration, for ITS.REASON: cysts breast ORDERING PHYSICIAN: Brian Edge MD PATIENT AGE: 48 years COMPARISON: 08/12/2018 Prebiopsy ultrasound performed demonstrating a prominent lobulated cyst in the right breast deep to the nipple measuring 2.8 x 2 cm labeled as cyst A with an adjacent cyst medial at 1.9 x 1.8 cm which has some slight increase echoes labeled as cyst V. TECHNIQUE: Following obtaining informed consent, using aseptic technique and local anesthesia with buffered lidocaine, fine-needle aspiration was performed of the cyst a. Approximately 10 mL's of dark fluid was aspirated. Following this, the cyst labeled B was aspirated and 5 mL's of cloudy fluid was obtained. The cyst were nearly completely aspirated The patient tolerated the procedure well without evidence of immediate complications and left the ultrasound suite in stable condition. CYTOLOGY: Cyst A: Negative for malignancy, scant proteinaceous debris and foam cells consistent with benign cyst Cyst B: Negative for malignancy abundant proteinaceous debris with foam cells consistent with benign cyst IMPRESSION: Successful cyst aspiration of the right breast. Cytology shows benign findings.
== END ==
PROVIDERS: PCP Nurse Practitioner Family; Visit Provider Obstetrics & Gynecology
DX: N60.01 Solitary cyst of right breast (principal)
CPT/HCPCS: 10005; 76641; 76942

== ENCOUNTER 2018-12-08 10:32 | Outpatient (CLI) | payer BC, SELFPAY ==
[2018-12-08 10:56] VITALS: BP 122/70; PULSE 65; RESP 18; TEMP 36.6; O2SAT 98
[2018-12-08 11:26] VITALS: BP 126/71; PULSE 68; RESP 18; O2SAT 97
[2018-12-08 11:40] VITALS: BP 133/69; PULSE 67; RESP 18; O2SAT 98
== END 2018-12-08 11:40 | disposition home or self-care (01) ==
LOC: INF 10:32
PROVIDERS: Visit Provider Internal Medicine Gastroenterology
DX: K51.90 Ulcerative colitis, unspecified, without complications (principal)
CPT/HCPCS: 96413; J3380

== ENCOUNTER 2019-02-02 11:10 | Outpatient (CLI) | payer BC, SELFPAY ==
[2019-02-02 11:43] VITALS: BP 95/53; PULSE 74; RESP 18; TEMP 36.6; O2SAT 97
[2019-02-02 12:13] VITALS: BP 101/52; PULSE 76; RESP 18; O2SAT 96
[2019-02-02 12:30] VITALS: BP 106/59; PULSE 72; RESP 18; O2SAT 97
== END 2019-02-02 12:30 | disposition home or self-care (01) ==
LOC: INF 11:10
PROVIDERS: Visit Provider Nurse Practitioner Acute Care
DX: K51.90 Ulcerative colitis, unspecified, without complications (principal)
CPT/HCPCS: 96413; J3380

== ENCOUNTER → 2019-02-24 15:32 | Outpatient (CLI) | payer BC, SELFPAY ==
--- NOTE | 2019-02-24 15:35 | US_ITS ---
US breast RT complete COMPARISON: Ultrasound right breast 08/12/2018 HISTORY: 6 month follow-up of multiple breast cysts TECHNIQUE: Targeted ultrasound FINDINGS: Multiple hypoechoic lesions with internal debris are again noted similar to the previous study. The largest is at 10:00 position outer breast measuring 1.8 x 1.8 x 1.6 cm. There is a smaller satellite hypoechoic cystic lesion 10:00 position measuring 0.8 x 0.9 x 0.8 cm and showing homogeneous internal but decreased echogenicity. Is another hypoechoic cystic lesion with internal debris at the 9:00 position mid breast measuring 1.3 x 1.2 x 1.1 cm. Other smaller cystic-appearing lesions are seen. All the lesions are basely stable except the larger cystic lesion at the 12:00 position seen on the previous study in July 2018 and probably was aspirated. Multiple normal-appearing nodes are seen in the axilla. IMPRESSION: Patient with a stable multiple cystic appearing lesions most of which contain internal debris and with no suspicious features. No additional ultrasound follow-up is indicated unless one or more of the lesions become symptomatically tender or painful
== END ==
PROVIDERS: PCP Nurse Practitioner Family; Visit Provider Obstetrics & Gynecology
DX: R92.8 Other abnormal and inconclusive findings on diagnostic imaging of breast (principal)
CPT/HCPCS: 76641

== ENCOUNTER 2019-03-30 11:24 | Outpatient (CLI) | payer BC, SELFPAY ==
[2019-03-30 11:45] VITALS: BP 111/70; PULSE 78; RESP 18; TEMP 36.2; O2SAT 100
[2019-03-30 12:15] VITALS: BP 131/78; PULSE 68; RESP 18
== END 2019-03-30 12:25 | disposition home or self-care (01) ==
LOC: INF 11:24
PROVIDERS: Visit Provider Nurse Practitioner Acute Care
DX: K51.90 Ulcerative colitis, unspecified, without complications (principal)
CPT/HCPCS: 96413; J3380

== ENCOUNTER → 2019-08-01 14:28 | Outpatient (POV) | payer OTHER, SELFPAY ==
--- NOTE | 2019-08-01 14:33 | XR_ITS ---
PROCEDURE: XR CHEST 2V CLINICAL HISTORY: COUGH, ULCERATIVE COLITIS Cough, smoker COMPARISON: CXR CHEST(2 VIEWS-NOT PORTABLE) from 04/09/2017 CXR CHEST(2 VIEWS-NOT PORTABLE) from 08/21/2017 CXR1VP XR chest portable from 10/17/2017 FINDINGS: The cardiomediastinal silhouette and pulmonary vascularity are within normal limits. The lungs are clear without infiltrates, suspicious nodules, or pleural effusions. Calcified granuloma is present in the right lower lobe. No acute bony findings. IMPRESSION: No acute findings. Dictated by: Jv Mata MD 08/01/2019 15:09 Electronically signed by Jv Mata MD in [place] 08/01/2019 15:09
[2019-08-01 15:46] LABS: Basophils # 0.1 K/mm3 (0-0.2); Basophils % 0.5 % (0.1-2.0); Eosinophils # 0.2 K/mm3 (0.0-0.4); Eosinophils % 1.5 % (0.1-12.0); Hematocrit 46.1 % (37.0-47.0); Hemoglobin 14.4 g/dL (12.2-16.2); Lymphocytes # 2.9 K/mm3 (0.7-4.5); Lymphocytes % 26.7 % (10-50); Mean Corpuscular HGB Conc 31.3 g/dL (31.8-35.4); Mean Corpuscular Hemoglobin 30.9 pg (27.0-31.2); Mean Corpuscular Volume 98.6 fl (81-99); Mean Platelet Volume 7.4 fl (7.4-10.4); Monocytes # 0.4 K/mm3 (0.1-1.0); Neutrophils # 7.2 K/mm3 (1.8-7.8); Neutrophils % 67.3 % (37.0-80.0); Platelet Count 396 K/mm3 (142-424); Red Blood Count 4.68 M/mm3 (4.20-5.40); Red Cell Distribution Width 12.9 % (11.5-17.5); White Blood Count 10.7 K/mm3 (4.8-10.8)
[2019-08-01 17:07] LABS: Erythrocyte Sedimentation Rate 14 mm/hr (0-30)
[2019-08-01 17:34] LABS: Alanine Aminotransferase 18 U/L (12-78); Albumin Level 3.8 gm/dL (3.4-5.0); Albumin/Globulin Ratio 1.2 (1.1-1.8); Alkaline Phosphatase 122 U/L (46-116); Anion Gap 14.6 mEq/L (5-15); Aspartate Amino Transferase 13 U/L (15-37); Bilirubin,Total 0.3 mg/dL (0.2-1.0); Blood Urea Nitrogen 11 mg/dL (7-18); C-Reactive Protein 0.3 mg/dL (0.0-0.9); Calcium 9.1 mg/dL (8.5-10.1); Carbon Dioxide 26 mmol/L (21.0-32.0); Chloride 107 mmol/L (98-107); Creatinine,Serum 0.73 mg/dL (0.55-1.02); Estimated Glomerular Filt Rate 84 ml/min (>60); GFR (African American) 102 ML/MIN (>60); Globulin 3.2 gm/dl (1.3-3.2); Glucose 84 mg/dL (74-106); Potassium 4.6 mmoL/L (3.5-5.1); Sodium 143 mmol/L (136-145)
[2019-08-03 05:09] LABS: Hep A Ab, IgM Negative (Negative); Hepatitis B Core Antibody IgM Negative (Negative); Hepatitis B Surface Antigen Negative (Negative)
[2019-08-03 08:06] LABS: Hepatitis C Antibody <0.1 s/co ratio (0.0-0.9)
== END ==
PROVIDERS: PCP Nurse Practitioner Family; Visit Provider Nurse Practitioner Family
DX: K51.90 Ulcerative colitis, unspecified, without complications (principal)
CPT/HCPCS: 36415; 71046; 80053; 80074; 85025; 85651; 86140

== ENCOUNTER → 2019-09-01 09:52 | Outpatient (CLI) | payer OTHER, SELFPAY | PROVIDERS: PCP Nurse Practitioner Family; Visit Provider Nurse Practitioner Family | DX: R05 Cough (principal) | CPT/HCPCS: 94060; 94618; 94640; 94726; 94729 ==

== ENCOUNTER → 2019-11-07 13:42 | Outpatient (POV) | payer OTHER, SELFPAY | PROVIDERS: Visit Provider Nurse Practitioner Family | DX: Z00.00 Encounter for general adult medical examination without abnormal findings (principal) ==

== ENCOUNTER → 2020-01-02 13:36 | Outpatient (CLI) | payer BC, SELFPAY ==
--- NOTE | 2020-01-02 13:41 | XR_ITS ---
PROCEDURE: XR SACRUM COCCYX MIN 2V CLINICAL INDICATION: fall Posttraumatic pain COMPARISON: No exams were available for comparison FINDINGS: There is normal alignment. No fracture or dislocation. No lytic or blastic change. IMPRESSION: No acute findings. Dictated by: Jv Mata MD 01/02/2020 14:25 Electronically signed by Jv Mata MD in [facility] 01/02/2020 14:25
--- NOTE | 2020-01-02 13:41 | XR_ITS ---
PROCEDURE: XR LUMBAR SPINE 6V W BENDING CLINICAL INDICATION: fall Posttraumatic pain COMPARISON: No exams were available for comparison FINDINGS: There is normal alignment. No fracture or dislocation. No lytic or blastic change. IMPRESSION: No acute findings. Dictated by: Jv Mata MD 01/02/2020 14:24 Electronically signed by Jv Mata MD in [facility] 01/02/2020 14:24
== END ==
PROVIDERS: PCP Nurse Practitioner Family; Visit Provider Nurse Practitioner Family
DX: M54.5 Low back pain (principal)
CPT/HCPCS: 72114; 72220

== ENCOUNTER 2020-01-22 13:01 | Emergency (ER) | payer BC, SELFPAY ==
[2020-01-22 13:18] VITALS: BP 123/74; PULSE 88; RESP 16; TEMP 36.6; O2SAT 94; BMI 23.3
--- NOTE | 2020-01-22 13:23 | CT_ITS ---
PROCEDURE: CT ABDOMEN PELVIS WO CON CLINICAL INDICATION: r/o stone Right flank pain COMPARISON: Ten days this TECHNIQUE: Axial images obtained with sagittal and coronal reformats. All CT scans at the facility use one or more dose reduction, viz: automated exposure control, ma/kV adjustment per patient size (including targeted exams where dose is matched to indication, i.e. head), or iterative reconstruction technique. FINDINGS: LOWER THORAX: There are mild atelectatic changes in the lung bases. ABDOMEN & PELVIS: The liver, spleen, adrenal glands, pancreas, and gallbladder has an unremarkable appearance. There is a 2 mm stone in the upper pole of the right kidney. There is mild to moderate right hydronephrosis and hydroureter secondary to a 3 mm stone at the right ureterovesical junction. There is a 3 cm left renal cyst. No intestinal obstruction or free air. No evidence of appendicitis. There are scattered diverticula throughout the colon but no evidence of diverticulitis. There is thickening of the descending and sigmoid colon and rectal area which is nonspecific. There are post hysterectomy changes. No acute bony findings. IMPRESSION: 1. 3 mm right ureterovesical junction stone with mild to moderate right hydroureteronephrosis. 1 mm stone is present in the upper pole of the right kidney is well. 2. Colonic diverticulosis without diverticulitis. 3. Thickening of the descending colon and rectosigmoid region. This is nonspecific and could be due to nondistention or colitis. Dictated by: Jv Mata MD 01/22/2020 14:13 Electronically signed by Jv Mata MD in [facility] 01/22/2020 14:13
[2020-01-22 13:29] LABS: Microscopic, Urine URINE MICROSCOPIC (MICROSCOPIC)
[2020-01-22 13:33] LABS: Chloride 105 mmol/L (98-107); Potassium 3.8 mmoL/L (3.5-5.1); Sodium 137 mmol/L (136-145)
[2020-01-22 13:35] LABS: Alkaline Phosphatase 151 U/L (38-126); Anion Gap 11.8 mEq/L (5-15); Appearance,Urine CLEAR (Clear); Bilirubin,Total 0.5 mg/dl (0.2-1.3); Bilirubin,Urine Negative (Negative); Blood Urea Nitrogen 15 mg/dl (7-17); Blood, Urine TRACE-I (Negative); Carbon Dioxide 24 mmol/L (22.0-30.0); Color,Urine YELLOW (Yellow); Creatinine Clearance Estimated 86 mL/min (50-200); Estimated Glomerular Filt Rate 76 ml/min (>60); GFR (African American) 92 ML/MIN (>60); Glucose,Urine (UA) Negative (Negative); Ketones,Urine Negative (Negative); Leukocyte Esterase,Urine Negative (Negative); Nitrate,Urine Negative (Negative); PH,Urine 7.5 (5.0-8.5); Protein,Urine Negative (Negative); Urobilinogen,Urine 0.2 EU/dl (0.2)
[2020-01-22 13:36] LABS: Albumin Level 4.3 g/dl (3.5-5.0); Albumin/Globulin Ratio 1.4 (1.1-1.8); Aspartate Amino Transferase 26 U/L (14-36); Calcium 9.5 mg/dl (8.4-10.2); Glucose 98 mg/dl (74-100); Total Protein,Serum 7.3 g/dl (6.3-8.2)
[2020-01-22 13:37] LABS: Alanine Aminotransferase 21 U/L (12-78); Basophils # 0.1 K/mm3 (0-0.2); Basophils % 0.7 % (0.1-2.0); Eosinophils # 0.2 K/mm3 (0.0-0.4); Eosinophils % 1.4 % (0.1-12.0); Hematocrit 43.8 % (37.0-47.0); Hemoglobin 14.4 g/dL (12.2-16.2); Lymphocytes % 24.7 % (10-50); Mean Corpuscular HGB Conc 32.8 g/dL (31.8-35.4); Mean Corpuscular Hemoglobin 30.7 pg (27.0-31.2); Mean Corpuscular Volume 93.5 fl (81-99); Mean Platelet Volume 7.4 fl (7.4-10.4); Monocytes # 0.6 K/mm3 (0.1-1.0); Monocytes % 4.7 % (1.7-9.3); Neutrophils # 8.4 K/mm3 (1.8-7.8); Neutrophils % 68.5 % (37.0-80.0); Platelet Count 379 K/mm3 (142-424); Red Blood Count 4.69 M/mm3 (4.20-5.40); Red Cell Distribution Width 12.5 % (11.5-17.5); White Blood Count 12.3 K/mm3 (4.8-10.8)
[2020-01-22 13:46] LABS: Amorphous Sediment,Urine 1+ /lpf; Bacteria,Urine Trace /lpf; WBC,Urine Occasional #/hpf (0-3)
--- NOTE | 2020-01-22 14:27 | HMH.EDGENADL ---
ED Disposition Clinical Impression: Kidney stones Disposition: Home, Self-Care Condition on Discharge: Good Instructions: DI for Chronic Pain -- Adult, DI for Acute Pain -- Adult Additional Instructions: Please follow-up with primary care if pain still persist. Prescriptions: Oxycodone HCl/Acetaminophen [Percocet 10-325 mg Tablet] 1 tab PO Q6H PRN 3 Days #12 tab PRN Reason: Mild Pain Prescription Printed Referrals: Cy Alexandra APRN [Primary Care Provider] - - Critical Care Critical Care Time: No Attestation: On 01/22/20, the high probability of a clinically significant, sudden or life threatening deterioration of the following system(s) required my full and direct attention, intervention and personal management. The time I documented below is in addition to time spent performing reported procedures but includes the following listed in this critical care notation. Medical Decision Making - Medical Records Medical records reviewed: Yes: I reviewed the patient's medical records. - Derian Inquiry Pt receiving controlled substance: No Vital Signs: 01/22/20 13:18 01/22/20 14:31 01/22/20 15:10 Temperature 98 F Temperature Source Oral Pulse Rate [Left Radial] 88 86 93 H Respiratory Rate 16 Blood Pressure [Right Arm] 123/74 135/76 110/65 Blood Pressure Mean [Right Arm] 90 95 80 Blood Pressure Position [Right Arm] Sitting Sitting Sitting 02 Sat by Pulse Oximetry 94 L Oxygen Delivery Method Room Air 01/22/20 15:33 Temperature Temperature Source Pulse Rate [Left Radial] 99 H Respiratory Rate 16 Blood Pressure [Right Arm] 114/79 Blood Pressure Mean [Right Arm] 90 Blood Pressure Position [Right Arm] 02 Sat by Pulse Oximetry 94 L Oxygen Delivery Method Room Air - Lab Data Lab results reviewed: Yes: I reviewed the patient's lab results. Lab Results 01/22/20 13:15: Urine Color Yellow, Urine Appearance Clear, Urine pH 7.5, Ur Specific [place] 1.020, Urine Protein Negative, Urine Glucose (UA) Negative, Urine Ketones Negative, Urine Blood Trace-i, Urine Nitrate Negative, Urine Bilirubin Negative, Urine Urobilinogen 0.2, Ur Leukocyte Esterase Negative, Urine RBC 3-5, Urine WBC Occasional, Ur Squamous Epith Cells 5-10, Amorphous Sediment 1+, Urine Bacteria Trace 01/22/20 13:15: WBC 12.3 H, RBC 4.69, Hgb 14.4, Hct 43.8, MCV 93.5, MCH 30.7, MCHC 32.8, RDW 12.5, Plt Count 379, MPV 7.4, Neut % (Auto) 68.5, Lymph % (Auto) 24.7, [place] % (Auto) 4.7, Eos % (Auto) 1.4, Baso % (Auto) 0.7, Neut # (Auto) 8.4 H, Lymph # (Auto) 3.0, [place] # (Auto) 0.6, Eos # (Auto) 0.2, Baso # (Auto) 0.1 01/22/20 13:15: Sodium 137, Potassium 3.8, Chloride 105, Carbon Dioxide 24, Anion Gap 11.8, BUN 15, Creatinine 0.80, Estimated Creat Clear 86, Estimated GFR 76, Est GFR ( Amer) 92, Glucose 98, Calcium 9.5, Total Bilirubin 0.5, AST 26, ALT 21, Alkaline Phosphatase 151 H, Total Protein 7.3, Albumin 4.3, Globulin 3.0, Albumin/Globulin Ratio 1.4 Result diagrams: 01/22/20 13:15 01/22/20 13:15 Orders (Tests/Meds): ED MEDICATIONS Generic Name Dose Route Start Last Admin Trade Name Freq PRN Reason Stop Dose Admin Sodium Chloride 1,000 mls @ 999 mls/hr 01/22/20 13:30 01/22/20 13:10 Sod Chlor 0.9% 1000ml Bag IV 01/22/20 14:30 999 mls/hr .Q1H1M LOREN Administration Sodium Chloride 1,000 mls @ 999 mls/hr 01/22/20 15:00 01/22/20 14:50 Sod Chlor 0.9% 1000ml Bag IV 01/22/20 16:00 999 mls/hr .Q1H1M LOREN Administration Sodium Chloride 1,000 mls @ 999 mls/hr 01/22/20 15:15 01/22/20 15:12 Sod Chlor 0.9% 1000ml Bag IV 01/22/20 16:15 999 mls/hr .Q1H1M LOREN Administration Discontinued Medications Generic Name Dose Route Start Last Admin Trade Name Freq PRN Reason Stop Dose Admin Fentanyl Citrate 70 mcg 01/22/20 14:49 01/22/20 14:50 Fentanyl 250mcg/5ml Vial IV 01/22/20 14:50 70 mcg ONCE ONE Administration Hydromorphone HCl 1 mg 01/22/20 13:33 01/22/20 13:30 Dilaudid 2mg/Ml Syri
[2020-01-22 14:31] VITALS: BP 135/76; PULSE 86
[2020-01-22 15:10] VITALS: BP 110/65; PULSE 93
[2020-01-22 15:33] VITALS: BP 114/79; PULSE 99; RESP 16; O2SAT 94
[2020-01-22 16:40] VITALS: BP 123/74; PULSE 79; RESP 16; TEMP 36.6; O2SAT 98
== END 2020-01-22 16:43 | disposition home or self-care (01) ==
PROVIDERS: Emergency Provider Family Medicine; PCP Nurse Practitioner Family
DX: N20.0 Calculus of kidney (principal); F41.9 Anxiety disorder, unspecified; K21.9 Gastro-esophageal reflux disease without esophagitis; F17.210 Nicotine dependence, cigarettes, uncomplicated
CPT/HCPCS: 74176; 80053; 81001; 85025; 96365; 96366; 96367; 96374; 96375; 96376; 99284; J2405

== ENCOUNTER → 2020-01-23 13:24 | Outpatient (CLI) | payer BC, SELFPAY ==
[2020-02-03 18:38] LABS: Composition SEE BELOW:; Specimen Type NOT PROVIDED
== END ==
PROVIDERS: Visit Provider Urology
DX: N20.0 Calculus of kidney (principal)
CPT/HCPCS: 82370

== ENCOUNTER 2020-02-04 21:37 | Emergency (ER) | payer BC, SELFPAY ==
--- NOTE | 2020-02-04 21:45 | HMH.EDGENADL ---
ED Disposition Clinical Impression: Headache Qualifiers: Headache type: unspecified Headache chronicity pattern: acute headache Intractability: not intractable Qualified Code(s): R51 - Headache Disposition: Home, Self-Care Condition on Discharge: Good Instructions: DI for Headache Additional Instructions: Additional instructions for HEADACHE: See your physician as soon as possible for further evaluation. Return immediately if worsening headache, vomiting, problems with vision or speech, fever, numbness or weakness of the extremities, neck pain or stiffness. Referrals: Cy Alexandra APRN [Primary Care Provider] - - Critical Care Critical Care Time: No Attestation: On 02/04/20, the high probability of a clinically significant, sudden or life threatening deterioration of the following system(s) required my full and direct attention, intervention and personal management. The time I documented below is in addition to time spent performing reported procedures but includes the following listed in this critical care notation. Medical Decision Making - Medical Records Medical records reviewed: Yes: I reviewed the patient's medical records. - Derian Inquiry Pt receiving controlled substance: No Vital Signs: 02/04/20 21:46 02/04/20 22:48 02/05/20 00:14 Temperature 98.3 F 98.3 F Temperature Source Oral Oral Pulse Rate 78 Pulse Rate [Right Brachial] 80 65 Respiratory Rate 16 18 16 Blood Pressure 133/82 Blood Pressure [Right Arm] 160/97 H 126/73 Blood Pressure Mean [Right Arm] 118 90 Blood Pressure Source Automatic Cuff Blood Pressure Source [Right Arm] Automatic Cuff Automatic Cuff Blood Pressure Position Sitting Blood Pressure Position [Right Arm] Sitting Sitting 02 Sat by Pulse Oximetry 97 98 Oxygen Delivery Method Room Air Room Air Room Air - Lab Data Lab results reviewed: Yes: I reviewed the patient's lab results. Lab Results 02/04/20 21:45: WBC 12.5 H, RBC 4.74, Hgb 14.0, Hct 43.8, MCV 92.3, MCH 29.6, MCHC 32.0, RDW 13.2, Plt Count 445 H, MPV 7.4, Neut % (Auto) 69.1, Lymph % (Auto) 23.3, [place] % (Auto) 4.7, Eos % (Auto) 2.2, Baso % (Auto) 0.6, Neut # (Auto) 8.6 H, Lymph # (Auto) 2.9, [place] # (Auto) 0.6, Eos # (Auto) 0.3, Baso # (Auto) 0.1 02/04/20 21:45: Sodium 139, Potassium 4.2, Chloride 105, Carbon Dioxide 28, Anion Gap 10.2, BUN 13, Creatinine 0.90, Estimated Creat Clear 79, Estimated GFR 66, Est GFR ( Amer) 80, Glucose 111 H, Calcium 9.9, Total Bilirubin 0.4, AST 24, ALT 15, Alkaline Phosphatase 145 H, Total Protein 8.1, Albumin 4.9, Globulin 3.2, Albumin/Globulin Ratio 1.5 Result diagrams: 02/04/20 21:45 02/04/20 21:45 Orders (Tests/Meds): ED MEDICATIONS Discontinued Medications Generic Name Dose Route Start Last Admin Trade Name Freq PRN Reason Stop Dose Admin Diphenhydramine HCl 25 mg 02/04/20 21:53 02/04/20 22:05 Benadryl 50mg/1ml Vial IV 02/04/20 21:54 25 mg ONCE ONE Administration Famotidine 20 mg 02/04/20 21:53 02/04/20 22:05 Pepcid 20mg/2ml Vial IV 02/04/20 21:54 20 mg ONCE ONE Administration Sodium Chloride 1,000 mls @ 999 mls/hr 02/04/20 22:00 02/04/20 22:05 Sod Chlor 0.9% 1000ml Bag IV 02/04/20 23:00 999 mls/hr .Q1H1M LOREN Administration Ketorolac Tromethamine 30 mg 02/04/20 22:16 02/04/20 22:16 Toradol 30mg/Ml Vial IV 02/04/20 22:17 30 mg ONCE ONE Administration Metoclopramide HCl 10 mg 02/04/20 21:53 02/04/20 22:05 Reglan 10mg/2ml Vial IVP 02/04/20 21:54 10 mg ONCE ONE Administration Sodium Chloride 8 ml 02/04/20 21:53 Sodium Chloride 0.9% 10ml Vial IV 03/05/20 21:52 NEEDED PRN dilute pepcid ORDERS Category Date Time Status CT head/brain wo con Stat Cat Scan 02/04/20 22:03 Taken - CT Data CT Scan: Head Time Received: 22:47 ([facility] fax) ED CT Reviewed: Yes: I have viewed the radiologist's interpretation Findings Narrative: No acute intracranial abnormality -
[2020-02-04 21:46] VITALS: BP 160/97; PULSE 80; RESP 16; TEMP 36.8; O2SAT 97; BMI 24.2
--- NOTE | 2020-02-04 22:03 | CT_ITS ---
PROCEDURE: CT HEAD/BRAIN WO CON CLINICAL INDICATION: headache right-sided COMPARISON: MRI scan of the brain without contrast 02/25/2018 TECHNIQUE: Axial images obtained. All CT scans at the facility use one or more dose reduction, viz: automated exposure control, ma/kV adjustment per patient size (including targeted exams where dose is matched to indication, i.e. head), or iterative reconstruction technique. FINDINGS: No midline shift, mass effect, intracranial hemorrhage, hydrocephalus, or extra-axial fluid collection is evident. The basilar cisterns are mildly prominent. The sylvian fissures and cortical sulci, particularly frontal lobes are prominent. The calvarium has an unremarkable appearance. No mastoid effusion. No sinus air-fluid level. IMPRESSION: Findings of mild age-appropriate cortical atrophy, no acute intracranial pathology noted Dictated by: Dr. Yobany Corbin MD 02/05/2020 08:[address] Yobany Corbin MD in [place] 02/05/2020 08:29
[2020-02-04 22:04] LABS: Basophils # 0.1 K/mm3 (0-0.2); Basophils % 0.6 % (0.1-2.0); Eosinophils # 0.3 K/mm3 (0.0-0.4); Eosinophils % 2.2 % (0.1-12.0); Hematocrit 43.8 % (37.0-47.0); Lymphocytes # 2.9 K/mm3 (0.7-4.5); Lymphocytes % 23.3 % (10-50); Mean Corpuscular Hemoglobin 29.6 pg (27.0-31.2); Mean Corpuscular Volume 92.3 fl (81-99); Mean Platelet Volume 7.4 fl (7.4-10.4); Monocytes # 0.6 K/mm3 (0.1-1.0); Monocytes % 4.7 % (1.7-9.3); Neutrophils # 8.6 K/mm3 (1.8-7.8); Neutrophils % 69.1 % (37.0-80.0); Platelet Count 445 K/mm3 (142-424); Red Blood Count 4.74 M/mm3 (4.20-5.40); Red Cell Distribution Width 13.2 % (11.5-17.5); White Blood Count 12.5 K/mm3 (4.8-10.8)
[2020-02-04 22:07] LABS: Alanine Aminotransferase 15 U/L (12-78); Albumin Level 4.9 g/dl (3.5-5.0); Albumin/Globulin Ratio 1.5 (1.1-1.8); Alkaline Phosphatase 145 U/L (38-126); Anion Gap 10.2 mEq/L (5-15); Aspartate Amino Transferase 24 U/L (14-36); Bilirubin,Total 0.4 mg/dl (0.2-1.3); Blood Urea Nitrogen 13 mg/dl (7-17); Calcium 9.9 mg/dl (8.4-10.2); Carbon Dioxide 28 mmol/L (22.0-30.0); Chloride 105 mmol/L (98-107); Creatinine Clearance Estimated 79 mL/min (50-200); Estimated Glomerular Filt Rate 66 ml/min (>60); GFR (African American) 80 ML/MIN (>60); Globulin 3.2 g/dL (1.3-3.2); Glucose 111 mg/dl (74-100); Potassium 4.2 mmoL/L (3.5-5.1); Sodium 139 mmol/L (136-145); Total Protein,Serum 8.1 g/dl (6.3-8.2)
[2020-02-04 22:48] VITALS: BP 126/73; PULSE 65; RESP 18; O2SAT 98
[2020-02-05 00:14] VITALS: BP 133/82; PULSE 78; RESP 16; TEMP 36.8; O2SAT 98
== END 2020-02-05 00:17 | disposition home or self-care (01) ==
PROVIDERS: Emergency Provider Emergency Medicine; PCP Nurse Practitioner Family
DX: R51 Headache (principal); F41.9 Anxiety disorder, unspecified; K21.9 Gastro-esophageal reflux disease without esophagitis; F17.210 Nicotine dependence, cigarettes, uncomplicated; Z87.442 Personal history of urinary calculi; Z90.09 Acquired absence of other part of head and neck; Z90.79 Acquired absence of other genital organ(s)
CPT/HCPCS: 70450; 80053; 85025; 96365; 96375; 99283

== ENCOUNTER → 2020-02-14 12:18 | Outpatient (CLI) | payer BC, SELFPAY ==
--- NOTE | 2020-02-14 12:31 | XR_ITS ---
PROCEDURE: XR CHEST 2V CLINICAL HISTORY: Dyspnea COMPARISON: CXR1VP XR chest portable from 10/17/2017 XR CHEST 2V from 08/01/2019 XR CHEST PORTABLE from 12/20/2019 FINDINGS: The cardiomediastinal silhouette and pulmonary vascularity are within normal limits. The lungs are clear without infiltrates, suspicious nodules, or pleural effusions. No acute bony abnormalities. IMPRESSION: No acute findings. Dictated by: Dr. Yobany Corbin MD 02/14/2020 12:[address] Yobany Corbin MD in [facility] 02/14/2020 12:46
[2020-02-14 13:01] LABS: Basophils # 0.1 K/mm3 (0-0.2); Basophils % 0.5 % (0.1-2.0); Eosinophils # 0.2 K/mm3 (0.0-0.4); Eosinophils % 1.3 % (0.1-12.0); Hematocrit 43.7 % (37.0-47.0); Hemoglobin 13.7 g/dL (12.2-16.2); Lymphocytes # 3.2 K/mm3 (0.7-4.5); Lymphocytes % 22.9 % (10-50); Mean Corpuscular HGB Conc 31.4 g/dL (31.8-35.4); Mean Corpuscular Hemoglobin 29.8 pg (27.0-31.2); Mean Corpuscular Volume 95.1 fl (81-99); Mean Platelet Volume 7.3 fl (7.4-10.4); Monocytes # 0.6 K/mm3 (0.1-1.0); Monocytes % 4.1 % (1.7-9.3); Neutrophils # 9.9 K/mm3 (1.8-7.8); Neutrophils % 71.2 % (37.0-80.0); Platelet Count 436 K/mm3 (142-424); White Blood Count 13.8 K/mm3 (4.8-10.8)
[2020-02-14 14:12] LABS: Alanine Aminotransferase 14 U/L (12-78); Albumin/Globulin Ratio 1.5 (1.1-1.8); Alkaline Phosphatase 121 U/L (38-126); Anion Gap 9.4 mEq/L (5-15); Aspartate Amino Transferase 22 U/L (14-36); Bilirubin,Total 0.2 mg/dl (0.2-1.3); Blood Urea Nitrogen 12 mg/dl (7-17); Calcium 9.5 mg/dl (8.4-10.2); Carbon Dioxide 27 mmol/L (22.0-30.0); Chloride 104 mmol/L (98-107); Estimated Glomerular Filt Rate 66 ml/min (>60); GFR (African American) 80 ML/MIN (>60); Globulin 2.7 g/dL (1.3-3.2); Glucose 92 mg/dl (74-100); Potassium 4.4 mmoL/L (3.5-5.1); Sodium 136 mmol/L (136-145); Total Protein,Serum 6.7 g/dl (6.3-8.2)
== END ==
PROVIDERS: PCP Physician Assistant; Visit Provider Physician Assistant
DX: R06.00 Dyspnea, unspecified (principal)
CPT/HCPCS: 36415; 71046; 80053; 85025

== ENCOUNTER → 2020-02-27 08:42 | Outpatient (CLI) | payer BC, SELFPAY ==
--- NOTE | 2020-02-27 08:43 | MM_ITS ---
PROCEDURE: MM DIG SCREENING MAMM BI W/CAD Digital Breast Tomosynthesis Included CLINICAL INDICATION: screening There is no personal or family history of breast cancer. There has been previous cyst aspirations on both breasts. COMPARISON: [facility] DIG MAMM-DX JOHNNY from 02/11/2016 [facility] DIG MAMM-SCREEN JOHNNY W/CAD from 07/01/2017 [facility] MM Dig screening mamm BI w/CAD from 08/03/2018 TECHNIQUE: Standard CC and MLO images and 3D Tomosynthesis was obtained. R2 CAD reviewed. FINDINGS: Moderate diffuse fibro glandular densities are seen in both breasts. Multiple cystic structures are seen in both breast best seen on the joe images. The cystic-appearing structures have markedly decreased in size when compared to previous studies. There are a few of benign-appearing calcifications in each breast. There are 2 mole markers left breast. There is no suspicious lesion in either breast and no suspicious microcalcifications. There is several small normal appearing nodes in each axilla. IMPRESSION: Fibrocystic type breast parenchyma with no suspicious lesions seen BI-RAD Category: 2 Benign Finding(s) FOLLOW-UP: 1YR 1 Year Follow-up (A letter has been sent to the patient regarding results of the study.) Dictated by: Dr. Yobany Corbin MD 02/29/2020 19:[address] Yobany Corbin MD in [place] 02/29/2020 19:25
== END ==
PROVIDERS: PCP Nurse Practitioner Family; Visit Provider Nurse Practitioner Family
DX: Z12.31 Encounter for screening mammogram for malignant neoplasm of breast (principal)
CPT/HCPCS: 77063; 77067

== ENCOUNTER → 2020-02-28 10:44 | Outpatient (CLI) | payer BC, SELFPAY ==
[2020-02-28 12:05] VITALS: PULSE 90; PULSE 96
== END ==
PROVIDERS: PCP Nurse Practitioner Family; Visit Provider Physician Assistant
DX: R06.00 Dyspnea, unspecified (principal)
CPT/HCPCS: 94060; 94618; 94640; 94726; 94729

== ENCOUNTER → 2020-03-02 10:38 | Outpatient (CLI) | payer BC, SELFPAY ==
[2020-03-02 14:12] LABS: Coronavirus 19 IgG Antibody Negative (Negative); Coronavirus 19 IgM Antibody Negative (Negative)
== END ==
PROVIDERS: Visit Provider Internal Medicine Gastroenterology
DX: Z01.818 Encounter for other preprocedural examination (principal)
CPT/HCPCS: 36415; 86328

== ENCOUNTER 2020-03-05 07:04 | Day surgery (SDC) | payer BC, SELFPAY ==
[2020-02-29 11:12] VITALS: BMI 23.7
--- NOTE | 2020-03-01 10:02 | SUR.PREOP ---
03/01/2020 @ 1000--PHONE CALL MADE TO PATIENT. PATIENT UNDERSTANDS THAT LAB WORK AND COVID TESTING NEEDS TO BE COMPLETED @ 1000 ON 03/02/2020. PATIENT UNDERSTANDS IF LAB WORK AND COVID-19 TESTS ARE NOT COMPLETED BY 12PM ON THAT DATE, THE SURGERY SCHEDULED WILL BE CANCELLED AND RESCHEDULED FOR ANOTHER TIME.
[2020-03-05 07:20] VITALS: BP 124/74; PULSE 102; RESP 18; TEMP 36.7; O2SAT 99
--- NOTE | 2020-03-05 07:49 | P.PN_ITS ---
[facility] Anesthesia Checklist - Structural Data Admitted From: Home Planned Operative Procedure/s: colonoscopy Consent for Planned Operative Procedure(s) Verified: Yes - Additional verifications Anesthesia Reactions: No - Airway Assessment C-Spine Mobility Assessed: Yes TMJ Mobility Assessed: Yes Dentition: Good Dentition - Neurological Assessment Level of Consciousness: Awake, Alert, Appropriate - Anesthesia Plan Anesthesia Risk discussed: Yes Anesthesia Plan: Verified ASA Class: II Anesthesia Type: MAC [facility] History I have reviewed the patient's past medical history: Yes Medical History: Reports:: Anxiety, Asthma, Gastroesophageal Reflux Disease(GERD), Kidney Stones, Palpitations Denies:: Cancer, Diabetes Mellitus Type 1, Diabetes Mellitus Type 2, Internal Pacemaker, Lung Disease, MRSA, Seizures *Have you ever received a pneumonia vaccine?: No *Have you received a flu vaccine this season?: No Anesthesia experience/problems:: none Laterality Cases: Bilateral: Tonsillectomy Other Surgeries: Yes: , Dilation and Curettage, Hysterectomy-Total. No: Pacemaker Amputation: No Fractures: No - *Social History Educational Level: Completed High School Smoking Status: Current every day smoker Tobacco Type: cigarettes # Packs/Day (cigarettes): 1 Alcohol Intake: never Alcohol Intake Frequency:: other Substance Use Type: denies use *Occupational Status:: employed Housing: house Household Members: spouse *Travel in the last 8 weeks: None - Psychiatric History Pschychiatric History:: Reports:: Anxiety Family Hx:: Cancer
--- NOTE | 2020-03-05 07:55 | P.PCN_ITS ---
[facility] Procedure Note Procedure Note:: Colonoscopy Procedure Report: Colonoscopy with cold snare polypectomy and cold biopsies Endoscopist: Rasheed Glover II, MD Referring physician: Parish BLANCHARD/Jude Alcocer MD Date of Procedure: March 05, 2020 Equipment: Olympus 180 variable stiffness pediatric colonoscope Sedation: MAC sedation Indication: Mrs. Bryant is a 50-year-old female with a history of chronic ulcerative colitis now in remission. This was initially diagnosed in November 2012. She does have a positive p-ANCA and positive ASCA IgG antibody. She had a colonoscopy in February 2017 and had moderate left-sided ulcerative colitis with a cecal patch. She was started on Entyvio in September 2017. Her sigmoidoscopy in December 2017 found the colitis to be primarily in remission. Her last Entyvio infusion was the beginning of February 2019 (primarily because she lost insurance). She is continued to do well off of the Entyvio. She reports no abdominal pain, weight loss, change in her bowel habits or rectal bleeding. She reports no diarrhea or crampy discomfort. The patient has had banding of internal hemorrhoids. Procedure: Prior to the procedure, a history and physical exam was performed, and patient's medications and allergies were reviewed. The risks, benefits and alternatives of the sedation and procedure were discussed with the patient. All questions were answered and informed consent was obtained. The patient was brought to the procedure room. Patient identification and proposed procedure were verified by the physician and the nurse. The patient was placed in a left lateral decubitus position and the scope was passed under direct vision. Throughout the procedure, the patient's blood pressure, pulse, and oxygen saturations were monitored continuously. The colonoscopy was accomplished without difficulty. The patient tolerated the procedure well. Findings: On digital rectal examination there was normal rectal tone. There were no external hemorrhoids. The colonoscope was introduced through the anal canal to the rectum and advanced to the cecum. The ileocecal valve and appendiceal orifice were identified. The scope was advanced a short distance into the ileum which appeared grossly normal. The scope was then withdrawn into the colon. The cecum, ascending, transverse and descending colon were normal. There were 2 diminutive polyps in the descending colon that were 3 and 4 mm and removed via cold snare polypectomy. The remainder of the sigmoid and rectum were normal. There was normal mucosa with no evidence of active colitis. There was normal vascular pattern with no erythema or edema. Upon retroflexion within the rectum there was a larger hypertrophied anal papilla. This was biopsied with cold biopsy forceps. There were still grade 1 internal hemorrhoids.The preparation was excellent throughout with [place] Preparation Score of 9. The cecal time was 12 minutes. Impression: 1. Diminutive colonic polyps x2 2. Complete remission of chronic ulcerative colitis/left-sided colitis 3. Grade 1 internal hemorrhoids with hypertrophied anal papilla Plan: I would encourage continued bulk fiber supplementation on a maintenance basis. We will discuss dietary measures to follow. I am not convinced that she will require maintenance of remission therapy since she is in complete remission off of treatment. I will follow-up the polyp histology and recommend repeat screening/surveillance colonoscopy again in 5 years.
[2020-03-05 08:20] VITALS: BP 83/58; PULSE 86; RESP 16; TEMP 36.2; O2SAT 95
[2020-03-05 08:30] VITALS: BP 112/64; PULSE 73; RESP 16; O2SAT 99
[2020-03-05 08:31] VITALS: O2SAT 98
[2020-03-05 08:40] VITALS: BP 117/88; PULSE 75; RESP 16; O2SAT 99
[2020-03-05 08:50] VITALS: BP 136/79; PULSE 61; RESP 16; O2SAT 98
== END 2020-03-05 08:50 | disposition home or self-care (01) ==
LOC: OUTP 07:05
PROVIDERS: PCP Nurse Practitioner Family; Visit Provider Internal Medicine Gastroenterology
PROC: 0DJD8ZZ Inspection of Lower Intestinal Tract, Via Natural or Artificial Opening Endoscopic (ICD-10-PCS; CPT 45378; principal; 2020-03-05 08:00)
DX: Z12.11 Encounter for screening for malignant neoplasm of colon (principal); K63.5 Polyp of colon; K64.0 First degree hemorrhoids; D12.8 Benign neoplasm of rectum; Z87.11 Personal history of peptic ulcer disease; Z87.19 Personal history of other diseases of the digestive system; Z72.0 Tobacco use; Z82.49 Family history of ischemic heart disease and other diseases of the circulatory system; Z80.9 Family history of malignant neoplasm, unspecified; Z90.710 Acquired absence of both cervix and uterus; Z90.89 Acquired absence of other organs
CPT/HCPCS: 45380; 45385

== ENCOUNTER → 2020-04-30 14:25 | Outpatient (CLI) | payer BC, SELFPAY ==
[2020-04-30 16:11] LABS: Coronavirus 19 IgG Antibody Negative (Negative); Coronavirus 19 IgM Antibody Negative (Negative)
== END ==
PROVIDERS: PCP Nurse Practitioner Family; Visit Provider Nurse Practitioner Family
DX: Z03.818 Encounter for observation for suspected exposure to other biological agents ruled out (principal)
CPT/HCPCS: 36415; 86328

== ENCOUNTER → 2020-05-28 13:22 | Outpatient (CLI) | payer BC, SELFPAY ==
[2020-05-30 14:23] LABS: Covid-19 Nasal PCR Sendout Lex Not Detected
== END ==
PROVIDERS: PCP Nurse Practitioner Family; Visit Provider Nurse Practitioner Family
DX: Z03.818 Encounter for observation for suspected exposure to other biological agents ruled out (principal); R51 Headache
CPT/HCPCS: U0004

== ENCOUNTER 2020-06-10 14:12 | Emergency (ER) | payer BC, SELFPAY ==
[2020-06-10 14:47] VITALS: BP 146/89; PULSE 79; RESP 14; TEMP 37; O2SAT 98; BMI 23.7
--- NOTE | 2020-06-10 14:51 | HMH.EDUTC ---
[facility] Dis[place] Clinical Impression: Dizziness Vomiting Qualifiers: Vomiting type: unspecified Vomiting Intractability: unspecified Nausea presence: with nausea Qualified Code(s): R11.2 - Nausea with vomiting, unspecified Disposition: Home, Self-Care Condition on Discharge: Good Instructions: Vertigo, DI for Vertigo, DI for Vomiting -- Adult, Nausea and Vomiting-Adult, Meclizine, Preventing the Spread of Coronavirus Discharge Instructions Additional Instructions: ? Drink extra fluids with and between meals. If you have difficulty drinking, try very small amounts of water or suck on ice chips. ? Avoid fruit juices, as these do not replace minerals and can actually increase diarrhea. ? Children and adults can use sports drinks to replenish electrolytes. Younger children and infants should use products formulated for children, like oral rehydration solutions. ? Eat food in small amounts and let your stomach recover. ? Get lots of rest. You may feel tired or weak. ? No greasy or fried foods for the next 24-48 hours BRAT diet Bananas Rice Apples and Seth Ward ? Make sure to drink plenty of liquids ? Return if needed ? Straight to ER if any life threatening symptoms ? Phenergan as prescribed ? Follow up with family doctor in the next 48-72 hours if no improvement or any worsening of symptoms You was tested for COVID19 and was given handout with instructions, make sure to call back to the [facility] in 48-72 hours to see if your test results are back and if they are negative You was given handout with instructions for self quarantine and self isolation make sure to follow instructions closely to help prevent the spread of COVID Prescriptions: Meclizine HCl [Meclizine 25mg Tab] 25 mg PO BID PRN #14 tab PRN Reason: Vertigo Transmission Status: Pending to [id number] Referrals: Cy Alexandra APRN [Primary Care Provider] - As needed Forms: Work/School Release Time of Disposition: 15:21 Medical Decision Making - Derian Inquiry Pt receiving controlled substance: No Derian was queried for this patient: No Vital Signs: 06/10/20 14:47 Temperature 98.6 F Temperature Source Oral Pulse Rate [Right Brachial] 79 Respiratory Rate 14 Blood Pressure [Right Arm] 146/89 H Blood Pressure Mean [Right Arm] 108 Blood Pressure Source [Right Arm] Automatic Cuff Blood Pressure Position [Right Arm] Sitting 02 Sat by Pulse Oximetry 98 Oxygen Delivery Method Room Air - Lab Data Lab results reviewed: Yes: I reviewed the patient's lab results. Orders (Tests/Meds): ED MEDICATIONS Discontinued Medications Generic Name Dose Route Start Last Admin Trade Name Corrine PRN Reason Stop Dose Admin Meclizine HCl 25 mg 06/10/20 14:56 06/10/20 15:12 Antivert 25mg Tablet PO 06/10/20 14:57 25 mg ONCE ONE Administration ORDERS Category Date Time Status Covid-19 Nasal PCR Sendout [facility] Routine Lab 06/10/20 14:45 Received Covid-19 Nasal PCR Sendout [facility] Stat Lab 06/10/20 14:34 Ordered [facility] HPI - General Stated complaint: vomiting dizzy Time Seen by Provider: 06/10/20 14:51 Mode of Arrival: Ambulatory Source of Information: Patient Limitations: No Limitations Description of Symptoms (Recalled from Triage Doc. by RN): PATIENT C/O NAUSEA, VOMITING, AND DIZZINESS THAT STARTED LAST NIGHT; REQUESTING A COVID TEST HEENT Symptoms (Recalled from RN notes): No Resp Symptoms (Recalled from RN notes): No Skin Symptoms (Recalled from RN notes): No MS Symptoms (Recalled from RN notes): No Functional Status (Recalled from RN notes): WNL - History of Present Illness Provider Complaint: Patient states that she has a history of vertigo and has had to have meclizine in the past States that her daughter has been sick with nausea and yesterday at work she was fine and she got home last night and started vomiting States that she feels like the room is spinning around her when she sits up quickly like she had before with vertigo - Related Data Ho
[2020-06-10 15:29] LABS: UTC Strep Screen (Rapid) Negative (Negative)
[2020-06-10 15:30] VITALS: BP 146/89; PULSE 79; RESP 14; TEMP 37; O2SAT 98
[2020-06-10 15:30] LABS: UTC Influenza A Antigen Negative (Negative); UTC Influenza B Antigen Negative (Negative)
[2020-06-12 16:11] LABS: Covid-19 Nasal PCR Sendout Lex Not Detected
== END 2020-06-10 15:32 | disposition home or self-care (01) ==
LOC: ER 14:16 → UTC 14:24
PROVIDERS: Emergency Provider Nurse Practitioner; PCP Nurse Practitioner Family
DX: R42 Dizziness and giddiness (principal); R11.2 Nausea with vomiting, unspecified; Z20.828 Contact with and (suspected) exposure to other viral communicable diseases; K21.9 Gastro-esophageal reflux disease without esophagitis; Z87.442 Personal history of urinary calculi; F17.210 Nicotine dependence, cigarettes, uncomplicated
CPT/HCPCS: 87804; 87880; 99202; U0004

== ENCOUNTER → 2020-07-11 14:38 | Outpatient (CLI) | payer BC, SELFPAY ==
--- NOTE | 2020-07-11 14:42 | XR_ITS ---
PROCEDURE: XR KNEE RT 3V CLINICAL INDICATION: Right knee pain COMPARISON: No exams were available for comparison FINDINGS: No fracture or dislocation. No lytic or blastic change. There is normal mineralization. The joint spaces are well-preserved. No significant degenerative/arthritic changes. No erosive changes evident. Other findings:None. IMPRESSION: No acute findings. Dictated by: Jv Mata MD 07/11/2020 16:12 Jv Mata MD in [place] 07/11/2020 16:12
== END ==
PROVIDERS: PCP Nurse Practitioner Family; Visit Provider Nurse Practitioner Family
DX: M25.561 Pain in right knee (principal)
CPT/HCPCS: 73562

== ENCOUNTER → 2020-08-06 11:54 | Outpatient (CLI) | payer BC, SELFPAY ==
[2020-08-06 12:16] LABS: Basophils # 0.1 K/mm3 (0-0.2); Basophils % 0.4 % (0.1-2.0); Eosinophils # 0.3 K/mm3 (0.0-0.4); Eosinophils % 2.2 % (0.1-12.0); Hematocrit 45.7 % (37.0-47.0); Hemoglobin 15.1 g/dL (12.2-16.2); Lymphocytes # 2.2 K/mm3 (0.7-4.5); Lymphocytes % 18.1 % (10-50); Mean Corpuscular HGB Conc 33.1 g/dL (31.8-35.4); Mean Corpuscular Hemoglobin 30.7 pg (27.0-31.2); Mean Corpuscular Volume 92.9 fl (81-99); Mean Platelet Volume 7.3 fl (7.4-10.4); Monocytes # 0.6 K/mm3 (0.1-1.0); Monocytes % 4.5 % (1.7-9.3); Neutrophils # 9.2 K/mm3 (1.8-7.8); Neutrophils % 74.9 % (37.0-80.0); Platelet Count 345 K/mm3 (142-424); Red Blood Count 4.92 M/mm3 (4.20-5.40); Red Cell Distribution Width 13.1 % (11.5-17.5); White Blood Count 12.3 K/mm3 (4.8-10.8)
[2020-08-06 12:53] LABS: Chloride 109 mmol/L (98-107); Sodium 141 mmol/L (136-145)
[2020-08-06 12:56] LABS: Blood Urea Nitrogen 11 mg/dl (7-17); Calcium 9.5 mg/dl (8.4-10.2); Carbon Dioxide 23 mmol/L (22.0-30.0); Estimated Glomerular Filt Rate 75 ml/min (>60); GFR (African American) 91 ML/MIN (>60); Glucose 112 mg/dl (74-100)
[2020-08-06 13:53] LABS: Coronavirus 19 IgG Antibody Negative (Negative); Coronavirus 19 IgM Antibody Negative (Negative)
== END ==
PROVIDERS: Visit Provider Otolaryngology
DX: Z01.818 Encounter for other preprocedural examination (principal); L72.9 Follicular cyst of the skin and subcutaneous tissue, unspecified
CPT/HCPCS: 36415; 80048; 85025; 86328

== ENCOUNTER 2020-08-07 06:06 | Day surgery (SDC) | payer BC, SELFPAY ==
[2020-08-02 14:56] VITALS: BMI 23.7
[2020-08-07 06:22] VITALS: BP 130/67; PULSE 95; RESP 18; TEMP 36.6; O2SAT 97
--- NOTE | 2020-08-07 06:45 | P.PN_ITS ---
[facility] Anesthesia Checklist - Patient Identification Patient Identification: Arm Band, Verbal (Name & ) - Structural Data Admitted From: Home Planned Operative Procedure/s: excision scalp lesion x3 Consent for Planned Operative Procedure(s) Verified: Yes Verified Documents: History and Physical - NPO Status Verified Time NPO: 00:00 - Additional verifications Patient : No Anesthesia Reactions: No Hx Blood Transfusions: No Blood Transfusion Reaction: No Cephalosporin Allergy: No Previous Colonoscopy: Yes - Cardiovascular Assessment Heart Sounds: S1 & S2 Pulse Strength: Baseline Pulse Rhythm: Regular - Airway Assessment C-Spine Mobility Assessed: Yes TMJ Mobility Assessed: Yes Dentition: Good Dentition - Neurological Assessment Level of Consciousness: Awake, Alert, Appropriate Hx Seizures: No Numbness or tingling in extremities: No - Anesthesia Plan Anesthesia Risk discussed: Yes Anesthesia Plan: Verified ASA Class: III Anesthesia Type: MAC [facility] History I have reviewed the patient's past medical history: Yes Medical History: Reports:: Anxiety, Asthma, Gastroesophageal Reflux Disease(GERD), Kidney Stones, Palpitations Denies:: Cancer, Diabetes Mellitus Type 1, Diabetes Mellitus Type 2, Internal Pacemaker, Lung Disease, MRSA, Seizures *Have you ever received a pneumonia vaccine?: Yes *Have you received a flu vaccine this season?: No Other Medical History: Denies: Blood Transfusion Reaction Anesthesia experience/problems:: none Laterality Cases: Bilateral: Tonsillectomy Other Surgeries: Yes: Colonoscopy, , Dilation and Curettage, Hysterectomy-Total. No: Pacemaker Amputation: No Fractures: No - *Social History Last grade of school completed: High school graduate Smoking Status: Current every day smoker Tobacco Type: cigarettes # Packs/Day (cigarettes): 1 Alcohol Intake: never Alcohol Intake Frequency:: other Substance Use Type: denies use *Occupational Status:: other Housing: house Household Members: spouse *Travel in the last 8 weeks: None - Psychiatric History Pschychiatric History:: Reports:: Anxiety Family Hx:: Cancer
[2020-08-07 08:20] VITALS: BP 113/71; PULSE 87; RESP 16; TEMP 36.3; O2SAT 96
[2020-08-07 08:30] VITALS: BP 112/71; PULSE 75; RESP 16; O2SAT 97
--- NOTE | 2020-08-07 08:37 | HMH.OPNOTE ---
Date of procedure: 08/07/20 Pre-op Diagnosis:: 1. Frontal scalp lesion anterior 3 cm 2. Frontal scalp lesion posterior 2 cm 3. Occipital scalp lesion 3 cm Post-op Diagnosis:: same Procedure performed:: 1. Excision of frontal scalp lesion anterior 3 cm with tissue rearrangement geometric plastic repair 2. Excision of frontal scalp lesion posterior 2 cm with simple repair 3. Excision of occipital scalp lesion 3 cm with Z-plasty tissue rearrangement repair Surgeon:: Kp Dowell MD CLINICAL RESOURCE COORDINATOR:: Eric Henry Anesthesia: MAC Estimated blood loss (mL): 10 Operative findings:: same Operative note:: The scalp was prepped and draped the perilesional areas were infiltrated with a total of 8 cc of 2% lidocaine containing epinephrine. The lesion on the frontal scalp anteriorly was marked out the anjum out measured 3 cm the anjum out was incised and the lesion was identified and removed in entirety using tenotomy scissors.. Bleeding was stopped with bipolar cautery. Anterior and posterior incisions were made and a tissue rearrangement geometric plastic repair was done with interrupted 4-0 nylon sutures. The lesion on the frontal scalp posterior measured 2 cm the anjum out was incised and the lesion was mobilized and removed using tenotomy scissors. Bleeding was stopped with bipolar cautery, a simple repair was done with interrupted 4-0 nylon suture. The patient was then repositioned and the lesion on the occipital scalp was marked out, the anjum out measured 3 cm. The anjum out was incised and the lesion was carefully mobilized and removed in entirety, and submitted. Bleeding was stopped with bipolar cautery blood loss for all the procedure was 10 cc Surgicel snow was placed in the defect which was very very deep and anterior and posterior incisions were made and a tissue rearrangement Z-plasty repair was done with interrupted 4-0 nylon sutures. The patient had Dermabond dressings applied to all the sites and was sent to recovery in good general condition. Condition: stable Disposition: PACU Complications:: none
[2020-08-07 08:40] VITALS: BP 115/43; PULSE 74; RESP 16; TEMP 36.3; O2SAT 97
== END 2020-08-07 08:52 | disposition home or self-care (01) ==
LOC: OR 06:08
PROVIDERS: PCP Nurse Practitioner Family; Visit Provider Otolaryngology
PROC: (CPT 11622; principal; 2020-08-07 07:30)
DX: L72.11 Pilar cyst (principal); D17.0 Benign lipomatous neoplasm of skin and subcutaneous tissue of head, face and neck
CPT/HCPCS: 11622; 14020 ×2; 96374; 96375

== ENCOUNTER → 2020-11-06 12:21 | Outpatient (CLI) | payer BC, SELFPAY | PROVIDERS: PCP Nurse Practitioner Family; Visit Provider Nurse Practitioner Family | DX: Z20.822 Contact with and (suspected) exposure to COVID-19 (principal) | CPT/HCPCS: U0003 ==

== ENCOUNTER → 2021-01-31 15:39 | Outpatient (CLI) | payer BC, SELFPAY ==
--- NOTE | 2021-01-31 15:42 | XR_ITS ---
PROCEDURE: XR FOOT RT MIN 3V CLINICAL INDICATION: foot pain COMPARISON: No exams were available for comparison FINDINGS: No fracture or dislocation. No lytic or blastic change. There is normal mineralization. The joint spaces are well-preserved. No significant degenerative/arthritic changes. No erosive changes evident. Other findings:None. IMPRESSION: No acute findings. Dictated by: Jv Mata MD 01/31/2021 16:28 Jv Mata MD in [place] 01/31/2021 16:28
--- NOTE | 2021-01-31 15:42 | XR_ITS ---
PROCEDURE: XR HAND LT MIN 3V CLINICAL INDICATION: hand pain COMPARISON: No exams were available for comparison FINDINGS: No fracture or dislocation. No lytic or blastic change. There is normal mineralization. The joint spaces are well-preserved. No significant degenerative/arthritic changes. No erosive changes evident. Other findings:None. IMPRESSION: No acute findings. Dictated by: Jv Mata MD 01/31/2021 16:29 Jv Mata MD in [place] 01/31/2021 16:29
== END ==
PROVIDERS: PCP Nurse Practitioner Family; Visit Provider Nurse Practitioner Family
DX: M79.642 Pain in left hand (principal); M79.673 Pain in unspecified foot
CPT/HCPCS: 73130; 73630

== ENCOUNTER → 2021-03-14 11:50 | Outpatient (CLI) | payer BC, SELFPAY ==
--- NOTE | 2021-03-14 11:55 | XR_ITS ---
PROCEDURE: XR KNEE RT 4V CLINICAL INDICATION: R Knee pain COMPARISON: CR XR KNEE RT 3V from 07/11/2020 FINDINGS: Mild degenerative change of the medial and lateral joint compartments with mild degenerative change of the patellofemoral joint. Tiny joint effusion. No acute fracture dislocation. No lytic or blastic lesion. IMPRESSION: Mild tricompartment degenerative change of the right knee joint and tiny joint effusion. No acute fracture or dislocation. Dictated by: Lele Story MD 03/14/2021 12:21 Lele Story MD in [place] 03/14/2021 12:21
== END ==
PROVIDERS: PCP Nurse Practitioner Family; Visit Provider Nurse Practitioner Family
DX: M25.561 Pain in right knee (principal)
CPT/HCPCS: 73564

== ENCOUNTER → 2021-05-07 10:44 | Outpatient (CLI) | payer BC, SELFPAY ==
--- NOTE | 2021-05-07 10:44 | MM_ITS ---
PROCEDURE: MM DIG SCREENING MAMM BI W/CAD Digital Breast Tomosynthesis Included CLINICAL INDICATION: screening Cyst cyst this this this COMPARISON: MG DMDB DIG MAMM-DX JOHNNY from 02/11/2016 MG DMSB DIG MAMM-SCREEN JOHNNY W/CAD from 07/01/2017 MG SCBI MM Dig screening mamm BI w/CAD from 08/03/2018 MG MM DIG SCREENING MAMM BI W/CAD from 02/27/2020 TECHNIQUE: Standard CC and MLO images and 3D Tomosynthesis was obtained. R2 CAD reviewed. FINDINGS: Average fibroglandular tissue. There are multiple benign-appearing nodules bilaterally. Most of these are unchanged. There are bilateral benign-appearing calcifications. A new benign-appearing nodular density is present in the lower inner aspect of the left breast at 4 mm. Probably benign. Recommend six-month follow-up. The right breast shows no significant change. IMPRESSION: Probably benign findings left breast. Recommend six-month follow-up BI-RAD Category: 3 Probably Benign Finding Short Term Follow-Up FOLLOW-UP: 6M 6 Month Follow-up (A letter has been sent to the patient regarding results of the study.) Dictated by: Jv Mata MD 05/15/2021 18:07 Jv Mata MD in [place] 05/15/2021 18:07
== END ==
PROVIDERS: PCP Nurse Practitioner Family; Visit Provider Nurse Practitioner Family
DX: Z12.31 Encounter for screening mammogram for malignant neoplasm of breast (principal)
CPT/HCPCS: 77063; 77067

== ENCOUNTER → 2021-07-31 17:27 | Outpatient (CLI) | payer BC, SELFPAY | PROVIDERS: Visit Provider Nurse Practitioner Family | DX: Z20.822 Contact with and (suspected) exposure to COVID-19 (principal); U07.1 COVID-19; J02.9 Acute pharyngitis, unspecified | CPT/HCPCS: C9803; U0003; U0005 ==

== ENCOUNTER → 2021-11-19 07:57 | Outpatient (CLI) | payer BC, SELFPAY ==
--- NOTE | 2021-11-19 07:57 | MM_ITS ---
PROCEDURE INFORMATION: Exam: MG Left Diagnostic Breast Tomosynthesis Exam date and time: 11/19/2021 7:57 AM Age: 51 years old Clinical indication: 6 mth f/u lt breast nodule TECHNIQUE: Imaging protocol: Left Diagnostic tomosynthesis and 2D mammography including computer-aided detection (CAD) when performed. Unilateral or bilateral exam. COMPARISON: 1. MG MM DIG SCREENING MAMM BI W/CAD 05/07/2021 10:49 AM 2. MG MM DIG SCREENING MAMM BI W/CAD 02/27/2020 8:56 AM FINDINGS: MAMMOGRAPHY: The breast tissue is heterogeneously dense, which may obscure small masses. There is no stellate mass, architectural distortion or suspicious to suggest malignancy. Stable 0.4 centimeter faint mass in the posterior 3rd of the left lower inner quadrant. No skin thickening or axillary adenopathy. IMPRESSION: Stable probably benign left breast mass compared to prior mammogram dated 05/07/2021. A six-month follow-up diagnostic bilateral mammogram is recommended for continued close surveillance of the left breast as well as part of an annual screening schedule. ASSESSMENT: BI-RADS Category 3: Probably benign
== END ==
PROVIDERS: PCP Nurse Practitioner Family; Visit Provider Nurse Practitioner Family
DX: R92.8 Other abnormal and inconclusive findings on diagnostic imaging of breast (principal)
CPT/HCPCS: 77061; 77065; G0279

== ENCOUNTER → 2022-05-27 13:45 | Outpatient (CLI) | payer BC, SELFPAY ==
--- NOTE | 2022-05-27 13:45 | MM_ITS ---
PROCEDURE INFORMATION: Exam: MG Bilateral Diagnostic Breast Tomosynthesis Exam date and time: 05/27/2022 1:40 PM Age: 52 years old Clinical indication: Six-month follow-up probably benign left breast mass, compared to 11/19/2021 and 05/07/2021, and screening. No family history of breast cancer. TECHNIQUE: Imaging protocol: Bilateral Diagnostic tomosynthesis and 2D mammography including computer-aided detection (CAD) when performed. Unilateral or bilateral exam. COMPARISON: 1. MG MM DIG MAMM DX UNILAT LT CAD 11/19/2021 7:57 AM 2. MG MM DIG SCREENING MAMM BI W/CAD 05/07/2021 10:49 AM 3. MG MM DIG SCREENING MAMM BI W/CAD 02/27/2020 8:56 AM 4. MG SCBI MM Dig screening mamm BI w/CAD 08/03/2018 9:15 AM FINDINGS: MAMMOGRAPHY: Breast composition: There are scattered areas of fibroglandular density. Mass: Stable bilateral masses since 02/27/2020, in particular in the left lower inner aspect, since 05/07/2021. Architectural distortion: None. Calcifications: No suspicious calcifications. Asymmetric density: None. Skin thickening: None. Axillary adenopathy: None. IMPRESSION: Stable benign appearing mass in the left breast for 1 year, suggest annual screening mammography and sonography unless otherwise clinically indicated. No mammographic evidence of malignancy. ASSESSMENT: BI-RADS Category 2: Benign
== END ==
PROVIDERS: PCP Nurse Practitioner Family; Visit Provider Nurse Practitioner Family
DX: R92.8 Other abnormal and inconclusive findings on diagnostic imaging of breast (principal)
CPT/HCPCS: 77062; 77066; G0279

== ENCOUNTER → 2022-09-18 11:02 | Outpatient (CLI) | payer BC, SELFPAY ==
--- NOTE | 2022-09-18 11:07 | CT_ITS ---
FINAL REPORT CLINICAL HISTORY: DAILEY COMPARISON: February 04, 2020 FINDINGS: Axial images of the head were obtained without contrast. Coronal reformatted images were also obtained.This study was performed with techniques to keep radiation doses as low as reasonably achievable (ALARA). Individualized dose reduction techniques using automated exposure control or adjustment of mA and/or kV according to the patient''s size were employed. There is no evidence of intracranial hemorrhage or mass. The ventricular size is within normal limits. There is no evidence of shift of the midline structures. No abnormal extra axial fluid collection is identified. No skull abnormality is seen on the bone window images. There is moderate mucosal thickening in the right maxillary sinus. IMPRESSION: No acute intracranial abnormality. Reviewed, Interpreted and Dictated by Ulises Borges III, MD Transcribed by Petra Zarate Authenticated and [facility]
== END ==
PROVIDERS: PCP Nurse Practitioner Family; Visit Provider Nurse Practitioner Family
DX: R51.9 Headache, unspecified (principal)
CPT/HCPCS: 70450

== ENCOUNTER → 2022-09-29 11:53 | Outpatient (CLI) | payer BC, SELFPAY ==
--- NOTE | 2022-09-29 11:59 | MR_ITS ---
FINAL REPORT TECHNIQUE: Multiplanar MR, without and with gadolinium enhancement CLINICAL HISTORY: HEADACHEs 12ml prohance injected FINDINGS: Diffusion sequences show no signal abnormality to indicate acute infarct. No mass, hemorrhage or edema is seen. Ventricles are normal. Major vascular flow voids are intact. Following contrast administration, no mass or abnormal enhancement is seen. IMPRESSION: Unremarkable MR evaluation the brain with contrast Reviewed, Interpreted and Dictated by Tremayne Gross MD Transcribed by Aimee Snyder Authenticated and . [facility]
== END ==
PROVIDERS: PCP Nurse Practitioner Family; Visit Provider Nurse Practitioner Family
DX: R51.9 Headache, unspecified (principal)
CPT/HCPCS: 70553; A9576

== ENCOUNTER → 2023-01-30 10:43 | Outpatient (CLI) | payer BC, SELFPAY ==
--- NOTE | 2023-01-30 10:45 | XR_ITS ---
FINAL REPORT CLINICAL HISTORY: right elbow pain for a month, no known injury COMPARISON: None FINDINGS: RIGHT ELBOW 3 views were obtained. There is no acute fracture or dislocation. There is no joint effusion. The joint spaces are intact. There is no soft tissue abnormality. IMPRESSION: No acute bony abnormality. Reviewed, Interpreted and Dictated by Scott Booth MD Transcribed by Shandra Velásquez Authenticated and [facility]
== END ==
PROVIDERS: PCP Nurse Practitioner Family; Visit Provider Orthopaedic Surgery
DX: M25.521 Pain in right elbow (principal)
CPT/HCPCS: 73080

== ENCOUNTER 2023-02-13 11:00 | Outpatient (RCR) | payer BC, SELFPAY | END 2023-02-13 11:05 | disposition home or self-care (01) | LOC: OT 11:00 | PROVIDERS: PCP Nurse Practitioner Family; Visit Provider Orthopaedic Surgery | DX: M77.11 Lateral epicondylitis, right elbow (principal) | CPT/HCPCS: 97165; 97530 ==

== ENCOUNTER → 2023-04-15 16:30 | Outpatient (CLI) | payer BC, SELFPAY ==
--- NOTE | 2023-04-15 16:43 | ECG_ITS ---
APPROVED REPORT Exam: Resting ECG HR:64 bpm ECG Measurements Heart Rate 64 AXES WA 151 P 14 QRSd 87 QRS 85 QT 378 T 60 QTc 388 Conclusion SINUS RHYTHM NORMAL ECG UNCONFIRMED REPORT Electronically signed by : Tyler Bhat MD 04/15/2023 20:59:33
--- NOTE | 2023-04-15 16:55 | XR_ITS ---
PROCEDURE INFORMATION: Exam: XR Chest Exam date and time: 04/15/2023 5:02 PM Age: 53 years old Clinical indication: Shortness of breath; Additional info: SOB TECHNIQUE: Imaging protocol: Radiologic exam of the chest. Views: 2 views. COMPARISON: CR XR CHEST 2V 02/14/2020 12:33 PM FINDINGS: Lungs: Lungs are well aerated without a focal area of consolidation. Emphysema suspected. Calcified granuloma middle lobe versus right lung base Pleural spaces: Unremarkable. No pleural effusion. No pneumothorax. Heart/Mediastinum: Unremarkable. No cardiomegaly. Bones/joints: Unremarkable. IMPRESSION: Lungs are well aerated without a focal area of consolidation.
[2023-04-15 20:04] LABS: Basophils % 0.3 % (0.1-2.0); Eosinophils # 0.2 K/mm3 (0.0-0.4); Eosinophils % 2.4 % (0.1-12.0); Hematocrit 41.3 % (37.0-47.0); Hemoglobin 13.1 g/dL (12.2-16.2); Lymphocytes # 2.8 K/mm3 (0.7-4.5); Lymphocytes % 27.5 % (10-50); Mean Corpuscular HGB Conc 31.8 g/dL (31.8-35.4); Mean Corpuscular Hemoglobin 30.4 pg (27.0-31.2); Mean Corpuscular Volume 95.5 fl (81-99); Mean Platelet Volume 7.8 fl (7.4-10.4); Monocytes # 0.4 K/mm3 (0.1-1.0); Monocytes % 4.2 % (1.7-9.3); Neutrophils # 6.6 K/mm3 (1.8-7.8); Neutrophils % 65.6 % (37.0-80.0); Platelet Count 350 K/mm3 (142-424); Red Blood Count 4.33 M/mm3 (4.20-5.40); Red Cell Distribution Width 12.7 % (11.5-17.5); White Blood Count 10.1 K/mm3 (4.8-10.8)
[2023-04-15 20:13] LABS: INR 0.94 (0.9-1.1); Prothrombin Time 10.2 seconds (10.1-12.5)
== END ==
PROVIDERS: PCP Nurse Practitioner Family; Visit Provider Internal Medicine Pulmonary Disease
DX: R06.02 Shortness of breath (principal); R04.2 Hemoptysis; J45.909 Unspecified asthma, uncomplicated
CPT/HCPCS: 36415; 71046; 85025; 85610; 93005

== ENCOUNTER 2023-04-24 10:40 | Day surgery (SDC) | payer BC, SELFPAY ==
[2023-04-22 16:20] VITALS: BMI 22.6
[2023-04-24] VITALS (12 sets, daily range): BP systolic 108–141; BP diastolic 67–92; PULSE 78–94; RESP 16–18; TEMP 36.3–36.8; O2SAT 92–99
[2023-04-24 11:23] LABS: Chloride 110 mmol/L (98-107)
--- NOTE | 2023-04-24 11:23 | P.PNANES_ITS ---
[facility] Disclaimer: The information contained in this section may have been updated after the patient was seen, as this information can be updated by other users. Medical History Dyspnea on exertion Hemoptysis Lung nodule Smoking greater than 30 pack years Surgical History History of colonoscopy History of hysterectomy History of tonsillectomy Family History Other Asthma COPD (chronic obstructive pulmonary disease) Cancer Social History Smoking Status: Current every day smoker tobacco type: cigarettes packs per day: 1 alcohol intake: never substance use type: denies use current occupational status: employed Travel in the last 8 weeks: None household members: spouse housing: house current occupational exposures/hazards: No caffeine: Yes [facility] Anesthesia Checklist Patient Identification Patient Identification: Arm Band and Verbal (Name & ) Structural Data Admitted From: Home Planned Operative Procedure/s: Bronchoscopy Consent for Planned Operative Procedure(s) Verified: Yes Verified Documents: Surgical Consent NPO Status Verified Time NPO: 00:00 Additional verifications Anesthesia Reactions: No Hx Blood Transfusions: No Blood Transfusion Reaction: No Airway Assessment C-Spine Mobility Assessed: Yes TMJ Mobility Assessed: Yes Dentition: Good Dentition Neurological Assessment Level of Consciousness: Awake and Alert Hx Seizures: No Anesthesia Plan ASA Class: II Anesthesia Type: General
[2023-04-24 11:24] LABS: Sodium 139 mmol/L (136-145)
[2023-04-24 11:27] LABS: Basophils # 0.1 K/mm3 (0-0.2); Basophils % 0.7 % (0.1-2.0); Blood Urea Nitrogen 14 mg/dl (7-17); Calcium 9.1 mg/dl (8.4-10.2); Carbon Dioxide 26 mmol/L (22.0-30.0); Creatinine Clearance Estimated 80 mL/min (50-200); Eosinophils # 0.2 K/mm3 (0.0-0.4); Eosinophils % 2.8 % (0.1-12.0); Estimated Glomerular Filt Rate 74 ml/min (>60); GFR (African American) 90 ML/MIN (>60); Glucose 91 mg/dl (74-100); Hematocrit 41.8 % (37.0-47.0); Hemoglobin 13.7 g/dL (12.2-16.2); Lymphocytes # 2.4 K/mm3 (0.7-4.5); Lymphocytes % 30.4 % (10-50); Mean Corpuscular HGB Conc 32.7 g/dL (31.8-35.4); Mean Corpuscular Hemoglobin 30.4 pg (27.0-31.2); Mean Corpuscular Volume 92.9 fl (81-99); Mean Platelet Volume 7.7 fl (7.4-10.4); Monocytes # 0.4 K/mm3 (0.1-1.0); Monocytes % 5.2 % (1.7-9.3); Neutrophils # 4.7 K/mm3 (1.8-7.8); Neutrophils % 60.8 % (37.0-80.0); Platelet Count 344 K/mm3 (142-424); Red Cell Distribution Width 12.7 % (11.5-17.5); White Blood Count 7.7 K/mm3 (4.8-10.8)
--- NOTE | 2023-04-24 11:30 | XR_ITS ---
FINAL REPORT CLINICAL HISTORY: RT UPPER LOBE BRONCH 1;24 FLUORO TIME FINDINGS: FLUOROSCOPY LESS THAN 1 HOUR HISTORY: Fluoroscopy guided injection. FINDINGS: Fluoroscopic guidance was provided for right upper lobe bronchoscopy. A single spot film was obtained. 1 minute 24 seconds of fluoroscopy time were used. IMPRESSION: As above. Reviewed, Interpreted and Dictated by Tremayne Gross MD Transcribed by Shandra Velásquez Authenticated and [facility]
--- NOTE | 2023-04-24 12:30 | P.PNANES_ITS ---
[facility] Anesthesia Record Part I Anesthesia Record I Intake, IV Amount: 900 Estimated blood loss (mL): 0 Urine output (mL): 0 Blood Products used (#): none Blood Pressure: 128/73 SaO2: 94 Pulse Rate: 87 Respiratory Rate: 16 Temperature: 97.7 F Patient is:: Drowsy and Stable Stable to PACU at:: 12:25
--- NOTE | 2023-04-24 12:56 | XR_ITS ---
FINAL REPORT CLINICAL HISTORY: Post procedure RIGHT UPPER LOBE BRONCH COMPARISON: 04/15/2023 FINDINGS: New oval ill defined opacity right upper lobe presumed pneumonia. The left lung is clear. No significant effusion. There is no evidence of pneumothorax. Mediastinum is unremarkable. Heart size is normal. IMPRESSION: Right upper lobe opacity compatible with pneumonia. Reviewed, Interpreted and Dictated by Tremayne Gross MD Transcribed by Shandra Velásquez Authenticated and [facility]
--- NOTE | 2023-04-24 12:56 | EXP.BRONCH.N ---
Procedure: Date: 04/24/23 Patient Date of :: 1970 Procedure Performed:: Bronchoscopy airway examination, bronchoalveolar lavage and transbronchial lung biopsy: Indications:: Hemoptysis Performing Provider:: Nadeem Roman MD Referring Provider:: Dr: Cy Alexandra APRN Sedation:: General anesthesia Procedure:: Bronchoscopy airway examination, bronchoalveolar lavage and transbronchial lung biopsy: A clean DIAGNOSTIC bronchoscopy was advanced through the ET tube and airways were examined up to subsegmental bronchi. Airways appeared grossly normal, no evidence of mucoid secretions, mucous plugging active bleeding/old blood clots noted. Bronchoalveolar lavage was performed in the RIGHT UPPER LOBE with instillation of 60 cc normal saline with return of 20 cc back. BAL fluid was sent for cell count and differential along with bacterial fungal and AFB stain and cultures. Transbronchial biopsy was performed in the RIGHT UPPER LOBE with a total of 7 biopsies performed, 5 biopsy specimens were sent in formalin for cytopathologic examination. The other 2 biopsy samples, were sent one each in two separate normal saline specimen cups for bacterial fungal and AFB stain cultures. Special request was also made for the pathologist to evaluate for AFB and fungal organisms on the cytopathologic examination. Patient tolerated the procedure with no immediate acute complications. We will follow the patient in pulmonary clinic in 7 to 10 days. Findings:: Please see the procedure note Recommendations:: Postoperative bronchoscopy instructions. Follow in pulmonary clinic in 5 to 7 days. Complications:: No acute immediate complication Estimated blood obtained (mL): 10
--- NOTE | 2023-04-24 16:52 | P.PNANES_ITS ---
[facility] Anesthesia Record Part II Anesthesia Record Part II Discharge Time: 12:55 Destination: Surgical Day Care (OP Surgery) PACU nurse assessment reviewed?: Yes Patient Condition:: Good Anesthesia Complications:: None Swallowing reflex intact?: Yes Cyanosis?: No Blood Pressure: 120/77 Pulse Rate: 79 Temperature: 97.3 F Mental Status: Alert & Oriented Pain level:: 0 Nausea and/or vomitting:: None Intake, IV Amount: 0
== END 2023-04-24 14:15 | disposition home or self-care (01) ==
PROVIDERS: PCP Nurse Practitioner Family; Visit Provider Internal Medicine Pulmonary Disease
PROC: (CPT 31624; principal; 2023-04-24 12:00)
DX: R91.1 Solitary pulmonary nodule (principal); R04.2 Hemoptysis; F17.210 Nicotine dependence, cigarettes, uncomplicated; J44.9 Chronic obstructive pulmonary disease, unspecified; R06.09 Other forms of dyspnea
CPT/HCPCS: 31624; 31628; 71045; 71046; 76000; 80048; 85025; 87070; 87102; 87116; 87186; 87205; 87206; J2405

== ENCOUNTER → 2023-08-03 12:43 | Outpatient (CLI) | payer BC, SELFPAY ==
[2023-08-03 13:40] VITALS: PULSE 96; PULSE 98
== END ==
PROVIDERS: PCP Nurse Practitioner Family; Visit Provider Internal Medicine Pulmonary Disease
DX: R06.02 Shortness of breath (principal); F17.210 Nicotine dependence, cigarettes, uncomplicated
CPT/HCPCS: 94060; 94618; 94640; 94727; 94729

== ENCOUNTER 2023-11-24 10:49 | Outpatient (CLI) | payer BC, SELFPAY ==
[2023-11-24 11:25] LABS: D-Dimer 0.44 ug/mL (0.0-0.5)
[2023-11-24 12:01] LABS: Troponin I < 0.01 ng/ml (0.00-0.034)
[2023-11-24 12:31] LABS: Basophils % 0.2 % (0.1-2.0); Eosinophils # 0.4 K/mm3 (0.0-0.4); Eosinophils % 3.2 % (0.1-12.0); Hematocrit 45.8 % (37.0-47.0); Hemoglobin 14.6 g/dL (12.2-16.2); Lymphocytes # 2.6 K/mm3 (0.7-4.5); Lymphocytes % 20.9 % (10-50); Mean Corpuscular HGB Conc 31.9 g/dL (31.8-35.4); Mean Corpuscular Hemoglobin 31.3 pg (27.0-31.2); Mean Corpuscular Volume 97.9 fl (81-99); Mean Platelet Volume 7.2 fl (7.4-10.4); Monocytes # 0.5 K/mm3 (0.1-1.0); Monocytes % 4.1 % (1.7-9.3); Neutrophils # 8.8 K/mm3 (1.8-7.8); Neutrophils % 71.6 % (37.0-80.0); Platelet Count 386 K/mm3 (142-424); Red Blood Count 4.68 M/mm3 (4.20-5.40); Red Cell Distribution Width 12.8 % (11.5-17.5); White Blood Count 12.3 K/mm3 (4.8-10.8)
[2023-11-24 12:40] LABS: Alanine Aminotransferase 18 U/L (12-78); Albumin Level 4.1 g/dl (3.5-5.0); Alkaline Phosphatase 122 U/L (38-126); Anion Gap 9.5 mEq/L (5-15); Aspartate Amino Transferase 26 U/L (14-36); Bilirubin,Direct 0.3 mg/dl (0.0-0.4); Bilirubin,Indirect 0.2 mg/dL (0.0-0.9); Bilirubin,Total 0.5 mg/dl (0.2-1.3); Bilirubin,Unconjugated 0.2 mg/dL (0.0-1.1); Blood Urea Nitrogen 14 mg/dl (7-17); Calcium 9.3 mg/dl (8.4-10.2); Carbon Dioxide 26 mmol/L (22.0-30.0); Chloride 109 mmol/L (98-107); Chol/HDL Ratio 8.4 (1-3.5); Cholesterol 270 mg/dl (140-200); Estimated Glomerular Filt Rate 65 ml/min (>60); GFR (African American) 79 ML/MIN (>60); Glucose 96 mg/dl (74-100); HDL Cholesterol 32 mg/dl (40-60); Magnesium 1.9 mg/dl (1.6-2.3); Potassium 4.5 mmoL/L (3.5-5.1); Sodium 140 mmol/L (136-145); Total Protein,Serum 6.6 g/dl (6.3-8.2); Triglycerides 371 mg/dl (30-150); VLDL Cholesterol 74 mg/dL (0-40)
[2023-11-24 12:51] LABS: Direct LDL Cholesterol 118.05 mg/dL (100-129)
[2023-11-24 13:10] LABS: Thyroid Stimulating Hormone 1.04 uIU/mL (0.465-4.68)
== END 2023-11-24 23:59 ==
LOC: LAB 10:50
PROVIDERS: PCP Nurse Practitioner Family; Visit Provider Internal Medicine
DX: R94.31 Abnormal electrocardiogram [ECG] [EKG] (principal); R00.0 Tachycardia, unspecified; R06.00 Dyspnea, unspecified; R07.9 Chest pain, unspecified
CPT/HCPCS: 36415; 80048; 80061; 80076; 83735; 84439; 84443; 84484; 85025; 85378; 93270

== ENCOUNTER 2023-12-08 07:56 | Outpatient (CLI) | payer BC, SELFPAY ==
--- NOTE | 2023-12-08 | CA_ITS ---
APPROVED REPORT Exam: Pharmacologic Technologist: Elena Lopez, Ht: 5 ft 6 in Wt: 146 lbs BSA: 1.75 m2 HR: 75 bpm BP: 134/85 mmHg Rhythm: sinus rhythm Medical History Medical History: Smoking Medications: AmiTRIPTYLINE,,,,, AmOXICILLIN,,,,, Allergies: No known drug allergies Stress Test Details Test: LEXISCAN HR Resting HR: 130 bpm Max Heart Rate (APMHR): 165 bpm Max HR Achieved: 131 bpm Target HR (85% APMHR): 140 bpm % of APMHR: 79 Recovery HR: 114 bpm BP Resting BP: 134.0/85.0 mmHg Max BP: 134.0/85.0 mmHg Recovery BP: 121.0/83.0 mmHg ECG Resting ECG: sinus rhythm Stress ECG: No significant ST changes Clinical Exercise duration: 03:03 min Highest Stage Achieved: Exercise capacity: 1.0 METs Stress ECG Conclusion during infusion patient had dyspnea and chest tightness. No arrhythmias/ectopy ST changes: None Conclusion: Unremarkable Lexiscan stress test. Myoview images reported separately. Test Summary REST . . . . . . . Sitting REST . . . . . . . Myoview Injected REST 02:14 . . 130 . 134/ 85 . . Stage 1 01:00 . . 129 . 128/ 83 . . Stage 2 01:00 . . 120 . 128/ 87 . . Stage 3 01:00 . . 115 . 134/ 84 . . Stage 4 00:03 . . 115 . . . Stop exercise at 03:03 RECOVERY 01:00 . . 110 . . . . RECOVERY 02:00 . . 105 . 129/ 84 . . RECOVERY 03:00 . . 91 . 129/ 84 . . RECOVERY 03:18 . . 95 . 122/ 89 . . Electronically signed by : Norma Meza MD 12/09/2023 11:30:08
--- NOTE | 2023-12-08 08:01 | NM_ITS ---
APPROVED REPORT Exam: Nuclear Stress Test Indication: Chest pain, SOB, Tobacco use Patient Location: Outpatient Stress Tech: Wendi Cobbnkson [place] Tech:Ragini Young, ARRT, RT (R)(N) Ht: 5 ft 6 in Wt: 145 lbs Bra Size: 38D HR: 130 bpm BP: 134/85 mmHg BSA: 1.74 m2 TID: 0.99 BMI: 23.4 History: Chest pain, SOB, Tobacco use Procedure: Patient received 0.4 mg of intravenous Lexiscan, resting heart rate 130 bpm, resting blood pressure 134/85 mmHg, with Lexiscan maximum heart rate achieved was 131 bpm which is % of the maximum predicted heart rate and blood pressure was 134/85 mmHg. With Lexiscan, patient denied any complaint of chest pain. Cardiac Stress and Resting SPECT Images: Cardiac Stress and Resting SPECT images were obtained using technetium 99m Myoview 32.9 mCi stress and 10.18 mCi at rest. Resting and stress imaging in supine and prone positions demonstrate no evidence of fixed or reversible perfusion defects. Gated imaging demonstrates normal global and regional LV systolic function. LVEF is calculated at 69%. Conclusion: No evidence of fixed or reversible perfusion defects. Gated imaging demonstrates normal global and regional LV systolic function. LVEF is calculated at 69%. Electronically signed by : Norma Meza MD 12/09/2023 11:31:09
[2023-12-08] MEDS: ISOTOPE MYOVIEW (PER STUDY) 1 DOSE IV (09:17)
[2023-12-08] MEDS: SODIUM CHLORIDE 0.9% 10ML SYR (RAD ONLY) 10 ML IV ×2 (09:17)
[2023-12-08] MEDS: REGADENOSON 0.4MG/5ML SYRINGE 0.400000000000000022 MG IV (09:17)
--- NOTE | 2023-12-08 09:20 | CA_ITS ---
APPROVED REPORT EXAM: Comprehensive 2D, Doppler, and color-flow Echocardiogram Manager Generation: Mallorie Bird RVT Ht: 5 ft 6 in Wt: 146lbs BSA: 1.75 BP: 110/60 mmHg Indications: CP,ABN EKG,SMOKER,SOA 2D Dimensions LA Volume 29.00 mL LA Volume Index 16.57 mL/m2 (M/F) 16-34 M-Mode Dimensions RVDd 2.90 cm (0.9-2.6) LA Diam 2.93 cm (1.9-4.0) LVDd 3.87 cm (3.5-5.7) LVDs 2.72 cm (3.5-5.7) IVSd 0.64 cm (0.6-1.1) PWd 0.47 cm (0.6-1.1) EF (Teich) 57.50% FS 29.70% EDV (Teich) 64.70 mL TAPSE 1.94 (<1.7) ESV (Teich) 27.50 mL LV Diastology E Decel Time 207 (160-240 msec) E/A Ratio 0.7 Aortic Valve JENNIFER Index 1.39 cm2/m2 AoV Peak Carter. 119.0 (50-130 cm/s) AO Peak GR. 5.60 mmHg AO Mean GR. 3.00 (<5 mmHg) AO VTI 24.7 (18-25 cm) JNENIFER (VTI) 2.49 (2.5-4.5 cm2) Mitral Valve MV E Max Carter. 59.0 (40-130 cm/s) MV A Velocity 88.0 (40-130 cm/s) E/A Ratio 0.67 MV PHT 61.0 ms Pulmonary Valve PV Peak Velocity 63.0 (50-150 cm/s) Left Ventricle The left ventricle is normal size. The left ventricular systolic function is normal. The left ventricular ejection fraction is within the normal range. There is normal left ventricular wall thickness. There is normal LV segmental wall motion. The left ventricular diastolic function is normal. LVEF is 55%. Right Ventricle The right ventricle is normal size. The right ventricular systolic function is normal. Atria The left atrium size is normal. The right atrium size is normal. There is no Doppler evidence of interatrial shunt. Aortic Valve The aortic valve opens well. There is no aortic valvular stenosis. Trace aortic regurgitation is present. Mitral Valve The mitral valve is normal in structure. No evidence of mitral valve stenosis. Trace mitral regurgitation. Tricuspid Valve The tricuspid valve leaflets are thin and pliable. Trace tricuspid regurgitation. There is insufficient TR jet to estimate RVSP. Pulmonic Valve The pulmonary valve is normal in structure. Trace pulmonic regurgitation. Great Vessels The aortic root is normal in size. IVC is normal in size and collapses >50% with inspiration. Pericardium There is no pericardial effusion. Other Information Study Quality: Fair Conclusion Normal biventricular systolic function. No significant valvular stenosis or regurgitation. Electronically signed by : Norma Meza MD 12/09/2023 21:47:12
== END 2023-12-08 23:59 ==
LOC: RAD 07:57
PROVIDERS: PCP Nurse Practitioner Family; Visit Provider Internal Medicine
DX: R06.00 Dyspnea, unspecified (principal); R07.9 Chest pain, unspecified; R00.0 Tachycardia, unspecified; R94.31 Abnormal electrocardiogram [ECG] [EKG]
CPT/HCPCS: 78452; 93017; 93018; 93306; A9502; J2785

== ENCOUNTER 2024-04-27 15:30 | Outpatient (CLI) | payer OTHER, SELFPAY ==
--- NOTE | 2024-04-27 15:31 | CT_ITS ---
FINAL REPORT TECHNIQUE: Thin section axial images were obtained from the lung apices to the upper abdomen by computed tomography. Reformatted images were obtained and reviewed. This study was performed with techniques to keep radiation doses al low as reasonably achievable (ALARA). Individualized dose reduction techniques using automated exposure control or adjustment of mA and/or kV according to the patient's size were employed. CLINICAL HISTORY: lung cancer screening - current smoker, 1 ppd, has smoked for 40 years COMPARISON: None FINDINGS: CHEST CT LOW DOSE 54-year-old male, current smoker, [id number] history. CTDI vol (mGy): 2.9 DLP (mGy-cm): 104.73 There is no axillary adenopathy. There are small calcified subcarinal and right hilar nodes present. The heart is normal in size. There is no pericardial or pleural effusion. There is moderate centrilobular emphysema and mild pulmonary scarring in the right base.. Lung window images demonstrate there is a nodule in the medial right upper lobe measuring 6 mm in size.. Limited images of the upper abdomen are unremarkable. IMPRESSION: Lung-RADS category 3. Recommend 6 month follow up low dose chest CT. Reviewed, Interpreted and Dictated by Scott Booth MD Transcribed by Jojo Treadwell Authenticated and [facility]
== END 2024-04-27 23:59 | disposition home or self-care (01) ==
LOC: RAD 15:31
PROVIDERS: PCP Nurse Practitioner Family; Visit Provider Internal Medicine Pulmonary Disease
DX: F17.210 Nicotine dependence, cigarettes, uncomplicated (principal)
CPT/HCPCS: 71271

== ENCOUNTER 2024-10-17 15:33 | Outpatient (CLI) | payer OTHER, SELFPAY ==
--- NOTE | 2024-10-17 15:38 | XR_ITS ---
FINAL REPORT CLINICAL HISTORY: pain COMPARISON: None FINDINGS: RIGHT ANKLE 3 views of the right ankle were obtained. There is no acute fracture or dislocation. The mortise is intact. Visualized joint spaces are normally aligned. Soft tissues are unremarkable. IMPRESSION: No acute bony abnormality. Reviewed, Interpreted and Dictated by Scott Booth MD Transcribed by Shandra Velásquez Authenticated and [facility]
--- NOTE | 2024-10-17 15:38 | XR_ITS ---
FINAL REPORT CLINICAL HISTORY: pain COMPARISON: 01/31/2021 FINDINGS: RIGHT FOOT 3 views of the right foot were obtained. There is no acute fracture or dislocation. Visualized joint spaces are normally aligned. Soft tissues are unremarkable. IMPRESSION: No acute bony abnormality. Reviewed, Interpreted and Dictated by Scott Booth MD Transcribed by Shandra Velásquez Authenticated and . [facility]
--- NOTE | 2024-10-17 15:39 | XR_ITS ---
FINAL REPORT CLINICAL HISTORY: PAIN IN ANKLE AND JOPINT OF RIGHT FOOT COMPARISON: None FINDINGS: Two views of the right tibia/fibula were obtained. There is no acute fracture or dislocation. The joint spaces are intact. There is no soft tissue abnormality. IMPRESSION: No acute process. Reviewed, Interpreted and Dictated by Scott Booth MD Transcribed by Shandra Velásquez Authenticated and [facility]
== END 2024-10-17 23:59 | disposition home or self-care (01) ==
LOC: RAD 15:34
PROVIDERS: PCP Nurse Practitioner Family; Visit Provider Nurse Practitioner Family
DX: M25.571 Pain in right ankle and joints of right foot (principal)
CPT/HCPCS: 73590; 73610; 73630

== ENCOUNTER 2025-05-08 14:42 | Outpatient (CLI) | payer OTHER, SELFPAY ==
--- OUTSIDE RECORDS SUMMARY | 2025-05-08 14:44 | XMS_ITS | Clinical Summary ---
Author Organization Healthcare Address [address] [place] [address] Care Team Providers Care Venereal Disease Investigator Name Role Phone Buck Stark MD Primary Care Provider [phone]- [phone] Immunizations Immunization Administration Dates Next Due TD (adult), 2 Lf tetanus tox oid, preservative free, adsorbed 03/30/2010 Family History Medical History Relation Name Comments Lung cancer Father Conversions - Other Mother Cancer o f bone Relation Name Status Comments Father Mother Social History Tobacco Use Types Packs/Day Years Used Date Smoking Tobacco: Former Alcohol Use Standard Drinks/Week Comments Yes 0 (1 standard drink = 0.6 oz pure alcohol) Alcoholic Drinks/day: Minimum alcohol consumption Comments Unknown Sex and Gender Information Value Date Recorded Sex Assigned at Not on file Legal Sex Female 8:28 PM EDT Gender Identity Not on file Sexual Orientation Not on file Last Filed Vital Signs Vital Sign Reading Time Taken Comments Blood Pressure - - Pulse - - Temperature - - Respiratory Rate - - Oxygen Saturation - - Inhaled Oxygen Concentration - - Weight 63 kg (139 lb) 01/16/2014 2:24 PM EDT Height 167.6 cm (5' 6 ) 01/16/2014 2:24 PM EDT Body Mass Index 22.44 01/16/2014 2:24 PM EDT Plan of Treatment Not on file Care Teams Venereal Disease Investigator Relationship Specialty Start Date End Date Buck Stark MD [address] [place] [id number] PCP - General 02/08/21
== END 2025-05-08 23:59 | disposition home or self-care (01) ==
LOC: RAD 14:43
PROVIDERS: PCP Nurse Practitioner Family; Visit Provider Nurse Practitioner Family
DX: Z12.31 Encounter for screening mammogram for malignant neoplasm of breast (principal)
CPT/HCPCS: 77063; 77067

== ENCOUNTER 2025-05-15 17:38 | Emergency (ER) | payer OTHER, SELFPAY ==
[2025-05-15] VITALS (9 sets, daily range): BP systolic 123–151; BP diastolic 81–89; PULSE 76–87; RESP 20; TEMP 36.6–36.7; O2SAT 93–98; BMI 23.7
--- OUTSIDE RECORDS SUMMARY | 2025-05-15 19:35 | XMS_ITS | Clinical Summary ---
Author Organization Healthcare Address [address] [place] [address] Care Team Providers Care Phone Technician Name Role Phone Buck Stark MD Primary Care Provider [phone]- [phone] Immunizations Immunization Administration Dates Next Due TD [...] of Treatment Not on file Care Teams Phone Technician Relationship Specialty Start Date End Date Buck Stark MD [address] [place] [address] PCP - General 02/08/21
--- NOTE | 2025-05-15 19:54 | PC.NURSE ---
Pt awake alert and oriented Skin pink warm and dry Resp full and easy Speech clear and appropriate Abd soft and flat pain in suprapubic area + bowel sounds x4
--- NOTE | 2025-05-15 19:57 | CT_ITS ---
PROCEDURE INFORMATION: Exam: CT Abdomen And Pelvis With Contrast Exam date and time: 05/15/2025 8:53 PM Age: 55 years old Clinical indication: Abdominal pain; Additional info: Suprapubic pain, urinary frequency, hematuria TECHNIQUE: Imaging protocol: Computed tomography of the abdomen and pelvis with contrast. Radiation optimization: All CT scans at this facility use at least one of these dose optimization techniques: automated exposure control; mA and/or kV adjustment per patient size (includes targeted exams where dose is matched to clinical indication); or iterative reconstruction. Contrast material: ISOVUE; Contrast volume: 75 ml; Contrast route: IV; COMPARISON: CT ABDOMEN PELVIS WO CON 01/22/2020 1:42 PM FINDINGS: Liver: Normal. Gallbladder and biliary ducts: Normal. Pancreas: Normal. Spleen: Normal. Adrenal glands: Normal. No mass. Kidneys and ureters: Simple left renal cyst, for which no further evaluation necessary. Stomach and bowel: Colonic diverticulosis, with acute diverticulitis involving the proximal sigmoid colon, where there is wall thickening and adjacent associated inflammatory fat stranding. No perforation or abscess. Appendix: Appendix normal. Intraperitoneal space: Unremarkable. No free air. No significant fluid collection. Vasculature: Unremarkable. No abdominal aortic aneurysm. Lymph nodes: Unremarkable. No enlarged lymph nodes. Urinary bladder: Unremarkable as visualized. Reproductive: Unremarkable as visualized. Bones/joints: No acute abnormality. Soft tissues: Normal. IMPRESSION: Colonic diverticulosis, with acute diverticulitis involving the proximal sigmoid colon, where there is wall thickening and adjacent associated inflammatory fat stranding. No perforation or abscess. Recommend follow-up after therapy to ensure resolution of these findings, it was colonic carcinoma could have a similar appearance.
--- NOTE | 2025-05-15 19:58 | ED_ITS ---
<Statement entered by Fredy Garcia MD - 05/16/25 14:38> I was consulted by the RANDELL, and we discussed the complexity of the problems being addressed. I approve the treatment and management plan for this patient's care in the emergency department, thus performing a substantive portion of the medical decision making. Fredy Garcia MD Discharge Plan Disposition Patient Disposition: Home, Self-Care Condition: Good Prescriptions Prescriptions: New amoxicillin-pot clavulanate 875-125 mg tablet 1 tab PO TID 5 Days Qty: 15 0RF ondansetron 4 mg tablet,disintegrating 4 mg PO Q6H PRN (Reason: nausea and vomiting) Qty: 10 0RF No Action metoprolol succinate [Toprol XL] 25 mg tablet extended release 24 hr 25 mg PO DAILY Qty: 90 3RF amitriptyline 25 mg tablet See Rx Instructions .ROUTE .COMPLEX Qty: 30 5RF Dose Instruction: TAKE 1 TABLET BY MOUTH AN HOUR BEFORE BEDTIME Rx Instructions: TAKE 1 TABLET BY MOUTH AN HOUR BEFORE BEDTIME Referrals Follow up/Referrals: Rasheed Glover II, MD [Staff Physician, Gastroenterology] - See instructions Cy Alexandra APRN [Primary Care Provider, Medical] - See instructions Activity Restrictions/Add. Instructions Additional Instructions/Restrictions: Please return to the emergency department with any worsening signs or symptoms, please take antibiotic as prescribed, please utilize bowel rest, good fluid intake, please take your antinausea medicine as prescribed as needed. Please follow-up with your PCP and GI physician in the upcoming days/weeks. Clinical Impressions Clinical Impression: Acute diverticulitis Instructions Patient Instructions: DI for Diverticulitis Print Language Print Language: Yakut Discharge ED Provider: Fredy Garcia General Adult HPI General Chief complaint: Abdominal Pain Stated complaint: Lower Abdominal pain,blood in urine,diarrhea Time Seen by Provider: 05/15/25 19:26 Mode of Arrival: Ambulatory Source of Information: Patient Description of Symptoms (Recalled from ER Triage Doc. by RN): diarrhea yesterday and urinary symptoms and pain in lower abd today History of Present Illness HPI narrative: 55-year-old female presents emergency department lower abdominal pain, urinary frequency/urgency, denies any real dysuria, admits to subjective fever and chills, denies any chest pain shortness of breath, nausea or vomiting, does bit the diarrhea since yesterday, denies any constipation, admits to microscopic hematuria performed on UA today at outside facility, denies any melena hematochezia, hematemesis hemoptysis, patient denies any vaginal bleeding vaginal discharge, no new sexual contacts or risky sexual behaviors, patient's current smoker, denies any alcohol or drug use, other past medical history is consistent with ulcerative colitis in remission, MDD/ARGELIA, otherwise unremarkable past medical history, initial triage vitals unremarkable. Please note that above description of symptoms, in this electronic medical record under categorization of recalled from ER triage doctor by RN are reflective of an initial nursing assessment, however, is not reflective of my full history and physical exam that was personally taken and clarified. Consequentially, this preceding description of symptoms, which may include the patient's categorized chief complaint in the EMR, do not reflect my personal clinical impression, and the ultimate description of history of present illness and patient stated complaints should be deferred to this section of the note. Unless stated otherwise or congruent with this section of the note, additional signs, symptoms, or incongruence should be interpreted as inaccurate with my clinical impression. Onset (ago): hour(s) Related Data Previous Rx's ?Medication ?Instructions ?Recorded metoprolol succinate 25 mg 25 mg PO DAILY #90 tabs tablet,extended release 24 hr (Toprol XL) amitriptyline 25 mg tablet See Rx Instructions .Route 03/06/25 .COMPLEX #30 tabs amoxicillin 875 mg-potassium 1 tab PO TID 5 days #15 t abs 05/15/25 clavulanate 125 mg tablet ondansetron 4 mg disintegrating 4 mg PO Q6H PRN nausea and 05/15/25 tablet vomiting #10 tabs Allergies Allergy/AdvReac Type Severity Reaction Status Date / Time No Known Allergies Allergy Verified 04/24/25 09:05 [facility] Disclaimer: The information contained in this section may have been updated after the patient was seen, as this information can be updated by other users. Medical History Abnormal electrocardiogram [ECG] [EKG] Hemoptysis Lung nodule Smoking greater than 30 pack years Dyspnea on exertion Surgical History History of colonoscopy History of tonsillectomy History of hysterectomy Family History Other Asthma COPD (chronic obstructive pulmonary disease) Cancer Social History Smoking Status: Current every day smoker tobacco type: cigarettes packs per day: 1 alcohol intake: never substance use type: denies use current occupational status: employed Travel in the last 8 weeks?: None household members: spouse housing: house current occupational exposures/hazards: No caffeine: Yes Have you lived/traveled outside [place] in past 30 days?: No Contact w/someone who lives/traveled outside US past 30 days?: No Exposure to someone with infectious disease in past 14 days?: No Do you have a fever (greater than 100.4 F or 38 C)?: No Have you tested positive for COVID-19?: No Exposed to someone with COVID-19 in past 14 days?: No Do you have a sore throat?: No Do you have a cough?: No Do you have any weakness?: No Do you have any diarrhea?: No Are you experiencing any unusual bleeding?: No Do you have any muscle aches/pain?: No Do you have any abdominal pain?: No Are you experiencing loss of taste or smell?: No Other Medical History Have you received the Flu Vaccine for this season: Yes Have you received the Pneumonia Vaccine: No ROS Obtained: Yes All systems reviewed & no additional complaints except as documented Physical Exam General General appearance: alert and in no apparent distress Head Head exam: atraumatic and normocephalic Eye Eye exam: Present PERRL and EOMI ENT ENT exam: Present mucous membranes moist Neck Neck exam: Present normal inspection Chest Chest inspection: Present normal inspection and symmetric chest wall rise Respiratory Respiratory exam: Present normal lung sounds bilaterally; Absent respiratory distress Cardiovascular Cardiovascular exam: Present regular rate and normal rhythm Abdominal Exam Abdominal exam: Present soft and tenderness; Absent guarding, rebound or rigidity Abdominal tenderness: Present suprapubic and mild Extremities Exam Extremities exam: Present normal inspection Neurological Exam Neurological exam: Present alert and oriented X3 Psychiatric Psychiatric exam: Present normal affect Skin Skin exam: Present warm and dry Medical Decision Making Medical Records Medical records reviewed: Yes I reviewed the patient's medical records. Screening: Per USPSTF and CDC recommendations, given the prevalence of disease in our region, it is our hospital?s policy to screen for HIV and viral Hepatitis for all patients aged 18 and over and those with ongoing risk factors. Derian Inquiry Pt receiving controlled substance: No Derian was queried for this patient: No Vital Signs: 05/15/25 19:35 05/15/25 19:40 05/15/25 20:37 Temperature 98.0 F Temperature Source Oral Pulse Rate 76 87 Pulse Rate [Right Radial] 86 Respiratory Rate 20 Blood Pressure 151/89 H 133/83 Blood Pressure [Right Arm] 151/89 H Blood Pressure Mean Blood Pressure Mean [Right Arm] 109 Blood Pressure Source [Right Arm] Automatic Cuff 02 Sat by Pulse Oximetry 97 95 95 Oxygen Delivery Method Room Air 05/15/25 21:00 05/15/25 21:01 05/15/25 21:01 Temperature Temperature Source Pulse Rate 77 77 Pulse Rate [Right Radial] Respiratory Rate Blood Pressure 133/82 Blood Pressure [Right Arm] Blood Pressure Mean 106 Blood Pressure Mean [Right Arm] Blood Pressure Source [Right Arm] 02 Sat by Pulse Oximetry 97 93 L Oxygen Delivery Method 05/15/25 21:15 05/15/25 21:30 05/15/25 22:00 Temperature Temperature Source Pulse Rate 82 79 Pulse Rate [Right Radial] Respiratory Rate Blood Pressure 123/81 Blood Pressure [Right Arm] Blood Pressure Mean 96 Blood Pressure Mean [Right Arm] Blood Pressure Source [Right Arm] 02 Sat by Pulse Oximetry 94 L 96 Oxygen Delivery Method 05/15/25 22:00 Temperature Temperature Source Pulse Rate Pulse Rate [Right Radial] Respiratory Rate Blood Pressure 143/87 H Blood Pressure [Right Arm] Blood Pressure Mean 105 Blood Pressure Mean [Right Arm] Blood Pressure Source [Right Arm] 02 Sat by Pulse Oximetry Oxygen Delivery Method Lab Data Lab results reviewed: Yes I reviewed the patient's lab results. Lab Results 05/15/25 18:35: WBC 15.6 H, RBC 4.67, Hgb 14.6, Hct 44.0, MCV 94.2, MCH 31.3 H, MCHC 33.2, RDW 12.7, Plt Count 378, MPV 10.0, Neut % (Auto) 71.1, Lymph % (Auto) 21.1, [place] % (Auto) 5.8, Eos % (Auto) 1.3, Baso % (Auto) 0.4, Neut # (Auto) 11.1 H, Lymph # (Auto) 3.3, [place] # (Auto) 0.9, Eos # (Auto) 0.2, Baso # (Auto) 0.1, Sodium 140, Potassium 3.7, Chloride 106, Carbon Dioxide 25, Anion Gap 12.7, BUN 10, Creatinine 0.80, Estimated Creat Clear 82, Estimated GFR 74, Est GFR ( Amer) 89, Glucose 91, Calcium 9.2, Total Bilirubin 0.7, AST 28, ALT 19, Alkaline Phosphatase 149 H, Total Protein 8.3 H D, Albumin 4.8, Globulin 3.5 H, Albumin/Globulin Ratio 1.4, Lipase 74, Urine Color Yellow, Urine Appearance Clear, Urine pH 6.0, Ur Specific [place] 1.020, Urine Protein Negative, Urine Glucose (UA) Negative, Urine Ketones Negative, Urine Blood 2+ A, Urine Nitrate Negative, Urine Bilirubin Negative, Urine Urobilinogen 0.2, Ur Leukocyte Esterase Negative, Urine RBC Occasional, Urine WBC 5-10, Ur Squamous Epith Cells 5-10, Urine Bacteria 1+, HCV Ab WAYLON w/Rflx PCR Qn Negative, HIV Ag/Ab Combo Qual Negative 05/15/25 21:00: Lactate 0.8 05/15/25 18:35 05/15/25 18:35 Orders (Tests/Meds): ED MEDICATIONS Generic Name Dose Route Start Last Admin Trade Name Freq PRN Reason Stop Dose Admin Sodium Chloride 10 ml 05/15/25 20:53 05/15/25 20:54 Sodium Chloride 0.9% 10ml Syr (Rad Only) IV 06/14/25 20:52 10 ml NEEDED PRN Administration Maintain IV Site Discontinued Medications Generic Name Dose Route Start Last Admin Trade Name Freq PRN Reason Stop Dose Admin Iopamidol 75 ml 05/15/25 20:53 05/15/25 20:54 Iopamidol-370 (76%);100ml Bottle IV 05/15/25 20:54 75 ml ONCE ONE Administration ORDERS Category Date Time Status CT abdomen pelvis w con Stat Cat Scan 05/15/25 19:57 Completed Complete Blood Count Auto Diff Stat Lab 05/15/25 18:35 Completed Comprehensive Metabolic Panel Stat Lab 05/15/25 18:35 Completed HIV Combo Routine Lab 05/15/25 18:35 Completed Hepatitis C Ab Qual. W/ RFX Routine Lab 05/15/25 18:35 Completed Lactic Acid Stat Lab 05/15/25 21:00 Completed Lipase Stat Lab 05/15/25 18:35 Completed Urinalysis and Microscopic Stat Lab 05/15/25 18:35 Completed Medical Decision Narrative: 55-year-old female presents emerged part with lower abdominal pain, urinary frequency/urgency, differential diagnose include but not limited to diverticulitis, nephrolithiasis, ureterolithiasis, acute UTI, acute pyelonephritis, colitis, ileitis, pancreatitis, appendicitis among others. I discussed this patient's case with the attending physician Dr. Garcia Will obtain basic laboratory studies, lactic acid level, lipase level, UA, will plan CT abd and pelvis with contrast further evaluation/characterization. CBC notable for leukocytosis 15.6 CMP is notable for normal lipase Urinalysis notable for 2+ hematuria, negative nitrites, negative leukocyte esterase. Occasional RBCs, 5-10 WBCs, 5-10 squamous epithelial cells 1+ urine bacteria on microscopic analysis of the patient's urine. No lactic acidosis I reviewed the patient's CT abdomen pelvis with contrast along the corresponding radiologic report, colonic diverticulosis with acute diverticulitis involving the proximal sigmoid colon where there is wall thickening and adjacent to the associated plan for fat stranding, no perforation no abscess, recommend follow- up after therapy to ensure resolution of these findings, colonic carcinoma could have similar appearance. I discussed the results with the patient at the bedside patient is in agreement with the current treatment plan/discharge plan, will treat patient with Augmentin 875/125 p.o. every 8 for 5 days, recommend bowel rest, will prescribe antiemetics and Zofran 4 mg p.o. for nausea and vomiting, patient was given strict ED return precautions, patient will follow-up with PCP and GI physician in the upcoming days, patient voiced understanding agree with current treatment plan/discharge plan. Critical Care Critical Care Time Critical Care Time: No
[2025-05-15 20:00] LABS: Microscopic, Urine URINE MICROSCOPIC (MICROSCOPIC)
[2025-05-15 20:03] LABS: Hematocrit 44.0 % (37.0-47.0); Hemoglobin 14.6 g/dL (12.2-16.2); Immature Granulocytes % 0.3 %; Mean Corpuscular HGB Conc 33.2 g/dL (31.8-35.4); Mean Corpuscular Hemoglobin 31.3 pg (27.0-31.2); Mean Corpuscular Volume 94.2 fl (81-99); Nucleated Red Blood Cells % 0 %; Platelet Count 378 K/mm3 (142-424); Red Blood Count 4.67 M/mm3 (4.20-5.40); Red Cell Distribution Width-SD 43.7 fL; White Blood Count 15.6 K/mm3 (4.8-10.8)
[2025-05-15 20:10] LABS: Albumin Level 4.8 g/dl (3.5-5.0); Chloride 106 mmol/L (98-107)
[2025-05-15 20:11] LABS: Potassium 3.7 mmoL/L (3.5-5.1); Sodium 140 mmol/L (136-145)
[2025-05-15 20:13] LABS: Alanine Aminotransferase 19 U/L (12-78); Albumin/Globulin Ratio 1.4 (1.1-1.8); Alkaline Phosphatase 149 U/L (38-126); Anion Gap 12.7 mEq/L (5-15); Aspartate Amino Transferase 28 U/L (14-36); Bilirubin,Total 0.7 mg/dl (0.2-1.3); Blood Urea Nitrogen 10 mg/dl (7-17); Carbon Dioxide 25 mmol/L (22.0-30.0); Creatinine Clearance Estimated 82 mL/min (50-200); Creatinine,Serum 0.80 mg/dl (0.52-1.04); Estimated Glomerular Filt Rate 74 ml/min (>60); GFR (African American) 89 ML/MIN (>60); Globulin 3.5 g/dL (1.3-3.2); Total Protein,Serum 8.3 g/dl (6.3-8.2)
[2025-05-15 20:14] LABS: Calcium 9.2 mg/dl (8.4-10.2); Glucose 91 mg/dl (74-100); Lipase 74 U/L (23-300)
[2025-05-15 20:24] LABS: Bilirubin,Urine Negative (Negative); Color,Urine YELLOW (Yellow); Glucose,Urine (UA) Negative (Negative); Ketones,Urine Negative (Negative); Leukocyte Esterase,Urine Negative (Negative); PH,Urine 6.0 (5.0-8.5); Protein,Urine Negative (Negative); Specific Gravity, Urine 1.020 (1.005-1.030); Urobilinogen,Urine 0.2 EU/dl (0.2)
[2025-05-15] MEDS: IOPAMIDOL-370 (76%);100ML BOTTLE 75 ML IV (20:54)
[2025-05-15] MEDS: SODIUM CHLORIDE 0.9% 10ML SYR (RAD ONLY) 10 ML IV (20:54)
[2025-05-15 20:57] LABS: Bacteria,Urine 1+ /lpf; RBC,Urine Occasional #/hpf (0-3)
[2025-05-15 21:17] LABS: Hepatitis C Ab Qual. W/ RFX NEGATIVE (Negative)
[2025-05-15] MEDS: AMOXICILLIN/CLAVULANATE POTASSIUM 875/125MG TABLET 1 EACH PO (22:28)
== END 2025-05-15 22:33 | disposition home or self-care (01) ==
PROVIDERS: Physician Assistant; Emergency Provider Student in an Organized Health Care Education/Training Program; PCP Nurse Practitioner Family
DX: R10.30 Lower abdominal pain, unspecified (principal); K57.32 Diverticulitis of large intestine without perforation or abscess without bleeding; D72.829 Elevated white blood cell count, unspecified; F17.210 Nicotine dependence, cigarettes, uncomplicated
CPT/HCPCS: 74177; 80053; 81001; 83605; 83690; 85025; 86803; 87389; 99284; Q9967